=== PATIENT | female | born 1930 | race Hispanic/Latino ===

== ENCOUNTER 2017-07-19 11:04 | Emergency (ER) | payer MEDICARE, MEDICAID ==
[2017-07-19 11:36] VITALS: TEMP 98.4
[2017-07-19] MEDS ORDERED: Sodium Chloride 0.9% 1,000 ML IV STA (11:53)
--- NOTE | 2017-07-19 11:53 | ED PDOC ---
Arrival/HPI - General Chief Complaint: Abdominal Pain Time Seen by Provider: 07/19/17 11:07 Historian: Patient, Family (Daughter) - History of Present Illness Narrative History of Present Illness (Text): 07/19/17 11:53 A 87 year old female, whose past medical history includes cholecysectomy, appendectomy, hypertension and arthritis, presents to the emergency department accompanied by daughter complaining of progressively worsening epigastric abdominal pain since last night after 2 hours of having dinner. Patient describes her pain as a non-radiating pressure sensation. Patient notes nausea but denies any fever, chills, vomiting, diarrhea, chest pain, shortness of breath or any other complaints. PMD: Dr. Vargas Alaniz in [place] Time/Duration: Other (last night) Quality: Pressure Context: Home Past Medical History - Provider Review Nursing Documentation Reviewed: Yes - Tetanus Immunization Tetanus Immunization: Unknown - Cardiac Hx Cardiac Disorders: Yes Hx Hypertension: Yes - Pulmonary Hx Respiratory Disorders: No - Neurological Hx Neurological Disorder: No - HEENT Hx HEENT Disorder: No - Renal Hx Renal Disorder: No - Endocrine/Metabolic Hx Endocrine Disorders: No - Hematological/Oncological Hx Blood Disorders: No - Integumentary Hx Dermatological Disorder: No - Musculoskeletal/Rheumatological Hx Musculoskeletal Disorders: Yes Hx Arthritis: Yes - Gastrointestinal Hx Gastrointestinal Disorders: Yes Hx Gastrointestinal Ulcer: Yes - Genitourinary/Gynecological Hx Genitourinary Disorders: No - Psychiatric Hx Depression: No Hx Emotional Abuse: No Hx Physical Abuse: No Hx Substance Use: No - Surgical History Hx Appendectomy: Yes Hx Cholecystectomy: Yes Other/Comment: LUNG SX - Suicidal Assessment Feels Threatened In Home Enviroment: No Family/Social History - Physician Review Nursing Documentation Reviewed: Yes Family/Social History: No Known Family HX Smoking Status: Former Smoker Hx Alcohol Use: No Hx Substance Use: No Hx Substance Use Treatment: No Allergies/Home Meds Allergies/Adverse Reactions: Allergies Sulfa (Sulfonamide Antibiotics) Allergy (Verified 07/19/17 11:26) ANAPHYLAXIS Home Medications: Home Meds Medication Instructions Recorded Confirmed Carvedilol [Coreg] 12.5 mg PO DAILY 06/13/12 07/19/17 Valsartan [Diovan] 320 mg PO DAILY 06/13/12 07/19/17 Review of Systems - Physician Review All systems were reviewed & negative as marked: Yes - Review of Systems Constitutional: absent: Fevers, Night Sweats Respiratory: absent: SOB Cardiovascular: absent: Chest Pain Gastrointestinal: Abdominal Pain (epigastric pain), Nausea. absent: Diarrhea, Vomiting Physical Exam Vital Signs Reviewed: Yes Vital Signs Temp Pulse Resp BP Pulse Ox 07/19/17 11:35 98.4 F 74 20 143/73 98 Temperature: Afebrile Blood Pressure: Normal Pulse: Regular Respiratory Rate: Normal Appearance: Positive for: Well-Appearing, Non-Toxic, Comfortable Pain Distress: None Mental Status: Positive for: Alert and Oriented X 3 - Systems Exam Head: Present: Atraumatic, Normocephalic Pupils: Present: PERRL Extroacular Muscles: Present: EOMI Conjunctiva: Present: Normal Mouth: Present: Moist Mucous Membranes Neck: Present: Normal Range of Motion Respiratory/Chest: Present: Clear to Auscultation, Good Air Exchange. No: Respiratory Distress, Accessory Muscle Use Cardiovascular: Present: Regular Rate and Rhythm, Normal S1, S2. No: Murmurs Abdomen: Present: Tenderness (Epigastric tenderness to palpation), Normal Bowel Sounds, Guarding. No: Distention, Peritoneal Signs, Rebound Back: Present: Normal Inspection Upper Extremity: Present: Normal Inspection. No: Cyanosis, Edema Lower Extremity: Present: Normal Inspection. No: Edema Neurological: Present: GCS=15, CN II-XII Intact, Speech Normal Skin: Present: Warm, Dry, Normal Color. No: Rashes Psychiatric: Present: Alert, Oriented x 3, Normal Insight, Normal Concentration Medical Decision Making ED Course and Treatment: 07/19/17 11:53 Impression: A 87 year old female with epigastric abdominal pain and nausea. Differential Diagnosis included but are not limited to: Gastritis vs. Pancreatitis Plan: -- Chest xray -- EKG -- Labs -- Maalox, , Pepcid, Lidocaine 2% viscous, Zofran and IV fluids -- Reassess and disposition Progress Notes: EKG shows NSR at 65 BPM with 1st degree AV block, LBBB, with no prior for comparison. Interpreted by me. Report Date : 07/19/2017 12:28:11 Procedure: Chest xray Dictator : Jorge Mejia MD IMPRESSION: Chronic interstitial lung disease. No significant interval change compared to the prior examination(s). 07/19/17 13:12 Rectal exam performed by me, chaperoned by kiran Daniels, which showed guaiac negative. On re-evaluation, patient reports she feels better after receiving medication. No abdominal tenderness on exam. I have discussed the results and plan with the patient and daughter, who express understanding. Patient in agreement with plan to be discharged home. Patient is stable for discharge. Patient was instructed to follow up with physician or return if symptoms worsen or new concerning symptoms arise. - Lab Interpretations Lab Results: 07/19/17 12:30 07/19/17 12:30 Lab Results 07/19/17 12:30: Sodium 134, Potassium 4.3, Chloride 99, Carbon Dioxide 26, Anion Gap 14, BUN 20, Creatinine 0.7, Est GFR ( Amer) > 60, Est GFR (Non- Af Amer) > 60, Random Glucose 104, Calcium 9.5, Total Bilirubin 0.3, AST 30, ALT 20, Alkaline Phosphatase 65, Lactate Dehydrogenase 432, Total Creatine Kinase 30 L, Troponin I < 0.01, Total Protein 7.2, Albumin 3.6, Globulin 3.6, Albumin/Globulin Ratio 1.0 L, Lipase 55 07/19/17 12:30: WBC 10.8, RBC 3.29 L, Hgb 9.1 L, Hct 28.3 L, MCV 86.0, MCH 27.7 , MCHC 32.2, RDW 18.4 H, Plt Count 485 H, MPV 9.3, Gran % 76.2 H, Lymph % (Auto ) 17.2 L, [place] % (Auto) 5.7, Eos % (Auto) 0.8 L, Baso % (Auto) 0.1, Gran # 8.22 H, Lymph # (Auto) 1.9, [place] # (Auto) 0.6, Eos # (Auto) 0.1, Baso # (Auto) 0.01 I have reviewed the lab results: Yes - RAD Interpretation Radiology Orders: 07/19/17 11:53 CHEST PORTABLE [RAD] Stat - Medication Orders Current Medication Orders: Sodium Chloride (Sodium Chloride 0.9%) 1,000 mls @ 100 mls/hr IV .Q10H STA Stop: 07/19/17 21:52 Last Admin: 07/19/17 12:36 Dose: 100 mls/hr eMAR Start Stop Document 07/19/17 12:36 SZA (Rec: 07/19/17 12:36 [facility] [id number]) Intravenous Solution Start Date 07/19/17 Start Time 12:36 Lidocaine (Lidocaine 2% Viscous) 15 ml PO Q3H PRN PRN Reason: abdominal pain Discontinued Medications Al Hydrox/Mg Hydrox/Simethicone (Maalox Plus 30 Ml) 30 ml PO STAT STA Stop: 07/19/17 11:55 Last Admin: 07/19/17 12:36 Dose: 30 ml Belladonna/Phenobarbital ( Elixir) 5 ml PO STAT STA Stop: 07/19/17 11:55 Last Admin: 07/19/17 12:52 Dose: 5 ml Famotidine (Pepcid) 20 mg IVP STAT STA Stop: 07/19/17 11:54 Last Admin: 07/19/17 12:37 Dose: 20 mg IVP Administration Document 07/19/17 12:37 Aydee (Rec: 07/19/17 12:37 [facility] [id number]) Charges for Administration # of IVP Administrations 1 Lidocaine HCl (Lidocaine 2% Viscous) 15 ml MM ONCE ONE Stop: 07/19/17 12:01 Last Admin: 07/19/17 12:36 Dose: 15 ml Ondansetron HCl (Zofran Inj) 4 mg IVP STAT STA Stop: 07/19/17 11:54 Last Admin: 07/19/17 12:36 Dose: 4 mg IVP Administration Document 07/19/17 12:36 Aydee (Rec: 07/19/17 12:36 [facility] [id number]) Charges for Administration # of IVP Administrations 1 - Scribe Statement The provider has reviewed the documentation as recorded by the Scribe Frances Nguyen Provider Scribe Attestation: All medical record entries made by the Scribe were at my direction and personally dictated by me. I have reviewed the chart and agree that the record accurately reflects my personal performance of the history, physical exam, medical decision making, and the department course for this patient. I have also personally directed, reviewed, and agree with the discharge instructions and disposition. Disposition/Present on Arrival - Present on Arrival Any Indicators Present on Arrival: No History of DVT/PE: No History of Uncontrolled Diabetes: No Urinary Catheter: No History of Decub. Ulcer: No History Surgical Site Infection Following: None - Disposition Have Diagnosis and Disposition been Completed?: Yes Diagnosis: Abdominal pain Disposition: HOME/ ROUTINE Disposition Time: 13:12 Patient Plan: Discharge Patient Problems: Current Active Problems Problem Status Onset Abdominal pain Acute Condition: IMPROVED Discharge Instructions (ExitCare): Acute Abdominal Pain (ED) Additional Instructions: Ms Devi, thank you for letting us take care of you today. Your provider was Dr. Sawyer. You were treated for Abdominal Pain, Gastritis. The emergency medical care you received today was directed at your acute symptoms. If you were prescribed any medication, please fill it and take as directed. It may take several days for your symptoms to resolve. Return to the Emergency Department if your symptoms worsen, do not improve, or if you have any other problems. Please contact your doctor or call one of the physicians/clinics you have been referred to that are listed on the Patient Visit Information form that is included in your discharge packet. Bring any paperwork you were given at discharge with you along with any medications you are taking to your follow up visit. Our treatment cannot replace ongoing medical care by a primary care provider (PCP) outside of the emergency department. Thank you for allowing the [facility] team to be part of your care today. If you had an X-Ray or CT scan: A Radiologist will review the ED reading if any change in treatment is needed we will contact you. If you had a blood, urine, or wound culture: It will take several days for the results, if any change in treatment is needed we will contact you. If you had an STI test: It will take 48 hours for the results. Please call after 1 week if you have not heard back. Prescriptions: Aluminum Hydroxide/Magnesium H [Maalox 30 ml] 30 ml PO Q8 #1 bottle Ranitidine HCl [Zantac] 150 mg PO BID PRN #30 tablet PRN Reason: Pain, Mild (1-3) Referrals: Vargas Alaniz Jr., MD [Primary Care Provider] - Follow up with primary Forms: [employer] (Togolese)
[2017-07-19] MEDS ORDERED: Lidocaine 2% Viscous 100 ml PO PRN (11:54)
[2017-07-19] MEDS ORDERED: Atrop/Hyosc/Scopal/PB Elixir (120 ml) PO STA (11:54)
[2017-07-19] MEDS ORDERED: Alum-Mag Hydrox-Simethicone Susp (30 mL) PO STA (11:54)
--- NOTE | 2017-07-19 12:29 | RAD ---
HISTORY: Abdominal pain. COMPARISON: 06/13/2012 FINDINGS: LUNGS: Chronic infiltrates, identified to similar degree prior chest x-ray from 06/13/2012. PLEURA: No significant pleural effusion identified, no pneumothorax apparent. CARDIOVASCULAR: No radiographic findings to suggest acute or significant cardiovascular disease. OSSEOUS STRUCTURES: No significant abnormalities. VISUALIZED UPPER ABDOMEN: Normal. OTHER FINDINGS: None. IMPRESSION: Chronic interstitial lung disease. No significant interval change compared to the prior examination(s).
[2017-07-19 12:42] LABS: BASO # 0.01 K/mm3 (0.0-2.0); BASO % 0.1 % (0.0-3.0); EOS # 0.1 (0.0-0.7); EOS % 0.8 % (1.5-5.0); GRAN # 8.22 (1.4-6.5); GRAN % 76.2 % (50.0-68.0); HEMOGLOBIN 9.1 g/dL (12.0-16.0); LYMPH # 1.9 (1.2-3.4); LYMPH % 17.2 % (22.0-35.0); MEAN CORPUSCULAR HEMOGLOBIN 27.7 pg (25.0-35.0); MEAN CORPUSCULAR HGB CONC 32.2 g/dl (31.0-37.0); MEAN PLATELET VOLUME 9.3 fl (7.0-11.0); MONO # 0.6 (0.1-0.6); MONO % 5.7 % (1.0-6.0); RBC 3.29 10^6/uL (3.5-6.1); RED CELL DISTRIBUTION WIDTH 18.4 % (11.5-14.5); WHITE BLOOD COUNT 10.8 10^3/ul (4.5-11.0)
[2017-07-19 12:52] LABS: ALBUMIN 3.6 g/dL (3.0-4.8); ALT/SGPT 20 U/L (7-56); AST/SGOT 30 U/L (14-36); BLOOD UREA NITROGEN 20 mg/dL (7-21); CALCIUM 9.5 mg/dL (8.4-10.5); GFR AFRICAN-AMERICAN > 60; GFR NON-AFRICAN AMERICAN > 60; LIPASE 55 U/L (23-300)
[2017-07-19 13:03] LABS: TROPONIN I < 0.01 ng/mL
--- NOTE | 2017-07-19 15:30 | CARD ---
APPROVED REPORT EKG Measurement Heart [id number] <Conclusion> Sinus rhythm with 1st degree AV block LBBB
[2017-07-19 18:29] VITALS: BP 139/76; PULSE 80; RESP 16; O2SAT 99
== END 2017-07-19 14:00 | disposition home or self-care (01) ==
LOC: ED 11:04
DX: R10.9 Unspecified abdominal pain (principal); I10 Essential (primary) hypertension; Z90.49 Acquired absence of other specified parts of digestive tract; Z87.891 Personal history of nicotine dependence
CPT/HCPCS: 71045; 80053; 82550; 83615; 83690; 84484; 85025; 93005; 96374; 96375; 99284; J2405; J7040

== ENCOUNTER 2017-08-03 04:51 | Inpatient (IN) | payer MEDICAID, MEDICARE ==
[2017-08-03 05:09] VITALS: BMI 21.9
--- NOTE | 2017-08-03 05:15 | ED PDOC ---
Arrival/HPI - General Chief Complaint: Abdominal Pain Time Seen by Provider: 08/03/17 05:09 Historian: Patient - History of Present Illness Narrative History of Present Illness (Text): 08/03/17 05:15 Judi is an 87 year old female, whose past medical history includes cholecystectomy, appendectomy, hypertension, and arthritis, who presents to the Emergency department accompanied by family complaining of worsening abdominal pain. Relative states patient was seen in the Emergency department 2 days prior to abdominal pain, had a CT Abdomen and Pelvis with IV contrast performed which showed constipation/diverticulosis without CT findings of diverticulitis, and was discharged home. [facility] has been experiencing worsening lower abdominal pain since then with associated constipation. Patient denies any fever, chills, chest pain, shortness of breath, nausea, vomiting, diarrhea, urinary symptoms, back pain, neck pain, headache, or any other complaints. Symptom Onset: Gradual Symptom Course: Worsening Activities at Onset: Light Context: Home Past Medical History - Provider Review Nursing Documentation Reviewed: Yes - Tetanus Immunization Tetanus Immunization: Unknown - Cardiac Hx Cardiac Disorders: Yes Hx Hypertension: Yes - Pulmonary Hx Respiratory Disorders: No - Neurological Hx Neurological Disorder: No - HEENT Hx HEENT Disorder: No - Renal Hx Renal Disorder: No - Endocrine/Metabolic Hx Endocrine Disorders: No - Hematological/Oncological Hx Blood Disorders: No - Integumentary Hx Dermatological Disorder: No - Musculoskeletal/Rheumatological Hx Musculoskeletal Disorders: Yes Hx Arthritis: Yes - Gastrointestinal Hx Gastrointestinal Disorders: Yes Hx Gastrointestinal Ulcer: Yes - Genitourinary/Gynecological Hx Genitourinary Disorders: No - Psychiatric Hx Depression: No Hx Emotional Abuse: No Hx Physical Abuse: No Hx Substance Use: No - Surgical History Hx Appendectomy: Yes Hx Cholecystectomy: Yes Other/Comment: LUNG SX - Suicidal Assessment Feels Threatened In Home Enviroment: No Family/Social History - Physician Review Nursing Documentation Reviewed: Yes Family/Social History: Unknown Family HX Smoking Status: Former Smoker Hx Alcohol Use: No Hx Substance Use: No Hx Substance Use Treatment: No Allergies/Home Meds Allergies/Adverse Reactions: Allergies Sulfa (Sulfonamide Antibiotics) Allergy (Verified 08/03/17 05:08) ANAPHYLAXIS sulfamethoxazole [From Bactrim] Allergy (Verified 08/03/17 05:08) RASH trimethoprim [From Bactrim] Allergy (Verified 08/03/17 05:08) RASH Home Medications: Home Meds Medication Instructions Recorded Confirmed Carvedilol [Coreg] 12.5 mg PO DAILY 06/13/12 08/03/17 Valsartan [Diovan] 320 mg PO DAILY 06/13/12 08/03/17 Review of Systems - Physician Review All systems were reviewed & negative as marked: Yes - Review of Systems Constitutional: Normal. absent: Fevers Eyes: Normal ENT: Normal Respiratory: Normal. absent: SOB, Cough Cardiovascular: Normal. absent: Chest Pain Gastrointestinal: Abdominal Pain, Constipation. absent: Diarrhea, Nausea, Vomiting Genitourinary Female: Normal. absent: Dysuria, Frequency, Hematuria, Urine Output Changes Musculoskeletal: Normal. absent: Back Pain, Neck Pain Skin: Normal. absent: Rash Neurological: Normal. absent: Headache, Dizziness Endocrine: Normal Hemo/Lymphatic: Normal Psychiatric: Normal Physical Exam Vital Signs Reviewed: Yes Vital Signs Temp Pulse Pulse Resp BP Pulse Ox 08/03/17 09:40 61 17 108/55 L 98 08/03/17 07:53 66 66 18 08/03/17 07:06 74 20 161/84 H 98 08/03/17 05:08 98.2 F 77 18 156/88 H 98 Temperature: Afebrile Blood Pressure: Normal Pulse: Regular Respiratory Rate: Normal Appearance: Positive for: Well-Appearing, Non-Toxic, Comfortable Pain Distress: None Mental Status: Positive for: Alert and Oriented X 3 - Systems Exam Head: Present: Atraumatic, Normocephalic Pupils: Present: PERRL Extroacular Muscles: Present: EOMI Conjunctiva: Present: Normal Mouth: Present: Moist Mucous Membranes Neck: Present: Normal Range of Motion Respiratory/Chest: Present: Clear to Auscultation, Good Air Exchange. No: Respiratory Distress, Accessory Muscle Use Cardiovascular: Present: Regular Rate and Rhythm, Normal S1, S2. No: Murmurs Abdomen: Present: Tenderness (Lower abdominal tenderness), Normal Bowel Sounds. No: Distention, Peritoneal Signs Back: Present: Normal Inspection Upper Extremity: Present: Normal Inspection. No: Cyanosis, Edema Lower Extremity: Present: Normal Inspection. No: Edema Neurological: Present: GCS=15, CN II-XII Intact, Speech Normal Skin: Present: Warm, Dry, Normal Color. No: Rashes Psychiatric: Present: Alert, Oriented x 3, Normal Insight, Normal Concentration Medical Decision Making ED Course and Treatment: 08/03/17 05:15 Impression: 87 year old female complaining of lower abdominal pain and constipation. Plan: -- CT Abdomem and Pelvis w/o contrast -- EKG -- Labs, cardiac enzymes, amylase, lipase -- Urinalysis -- IV fluids -- Dilaudid -- Zofran -- Reassess and disposition Prior Visits: Notes and results from previous visits were reviewed. On 08/01/2017, pt was seen in the Emergency department for abdominal pain and constipation. CT Abdomen and Pelvis shows: constipation, diverticulosis without CT fdnigns of diverticulitis, case d/w dr barbosa accepts case will go to m/s Progress Notes: 08/03/17 23:46 - Lab Interpretations Lab Results: 08/03/17 05:26 08/03/17 05:26 Lab Results 08/03/17 05:26: Sodium 135, Potassium 3.3 L, Chloride 98, Carbon Dioxide 25, Anion Gap 16, BUN 19, Creatinine 0.8, Est GFR ( Amer) > 60, Est GFR (Non- Af Amer) > 60, Random Glucose 111 H, Calcium 9.0, Total Bilirubin 0.3, AST 26, ALT 21, Alkaline Phosphatase 71, Lactate Dehydrogenase 448, Total Creatine Kinase 45, Troponin I < 0.01, Total Protein 6.9, Albumin 3.5, Globulin 3.4, Albumin/Globulin Ratio 1.1, Amylase 65, Lipase 56 08/03/17 05:26: PT 11.0, INR 0.96, APTT 28.2 08/03/17 05:26: WBC 5.4 D, RBC 3.40 L, Hgb 9.7 L, Hct 29.5 L, MCV 86.8, MCH 28.5, MCHC 32.9, RDW 18.5 H, Plt Count 289, MPV 9.6, Gran % 75.1 H, Lymph % ( Auto) 17.3 L, [place] % (Auto) 6.1 H, Eos % (Auto) 1.5, Baso % (Auto) 0.0, Gran # 4.08, Lymph # (Auto) 0.9 L, [place] # (Auto) 0.3, Eos # (Auto) 0.1, Baso # (Auto) 0.00 - RAD Interpretation Radiology Orders: 08/03/17 05:21 ABD & PELVIS W/O PO OR IV CONT [CT] Stat - EKG Interpretation EKG Interpretation (Text): 08/03/17 06:51 lbbb sinus rate 85 - Medication Orders Current Medication Orders: Docusate Sodium (Colace) 100 mg PO TID [facility] Last Admin: 08/03/17 17:00 Dose: 100 mg Last Bowel Movement Document 08/03/17 17:00 ANISH (Rec: 08/03/17 17:00 ANISH [id number]) Last Bowel Movement Last Bowel Movement 08/03/17 Sodium Chloride (Sodium Chloride 0.9%) 1,000 mls @ 80 mls/hr IV .[id number] [facility] Stop: 08/05/17 00:14 Fluconazole 100 mg/ (Miscellaneous) 50 mls @ 100 mls/hr IVPB DAILY [facility] PRN Reason: Protocol Last Admin: 08/03/17 11:22 Dose: 100 mls/hr eMAR Start Stop Document 08/03/17 11:22 ANISH (Rec: 08/03/17 11:23 ANISH [id number]) Intravenous Solution Start Date 08/03/17 Start Time 11:22 Iron Sucrose 200 mg/ Sodium (Chloride) 110 mls @ 110 mls/hr IVPB DAILY [facility] Stop: 08/07/17 10:59 Last Admin: 08/03/17 13:46 Dose: 110 mls/hr eMAR Start Stop Document 08/03/17 13:46 ANISH (Rec: 08/03/17 13:47 ANISH [id number]) Intravenous Solution Start Date 08/03/17 Start Time 13:47 Cefepime HCl (Maxipime 1gm) 1 gm in 100 mls @ 100 mls/hr IVPB DAILY [facility] PRN Reason: Protocol Ondansetron HCl (Zofran Inj) 4 mg IVP Q6H PRN PRN Reason: Nausea/Vomiting Pantoprazole Sodium (Protonix Ec Tab) 20 mg PO 0600,1600 [facility] Last Admin: 08/03/17 17:00 Dose: 20 mg Polyethylene Glycol (Miralax) 17 gm PO BID [facility] Last Admin: 08/03/17 16:59 Dose: 17 gm Potassium Chloride (K-Dur 20 Meq Er Tab) 20 meq PO BID [facility] Discontinued Medications Hydromorphone HCl (Dilaudid) 1 mg IVP STAT STA Stop: 08/03/17 05:22 Last Admin: 08/03/17 05:45 Dose: 1 mg MAR Pain Assessment Document 08/03/17 05:45 SS (Rec: 08/03/17 05:46 SS [id number]) Pain Reassessment Is this a pain reassessment? No Sleep Is patient sleeping during reassessment? No Presence of Pain Presence of Pain Yes Location Left, Right or Bilateral Bilateral Upper or Lower Lower Pain Location Body Site Abdomen Description Description Constant Intensity of Pain at present 9 Pain Behavior Moaning Crying Guarding Irritability Grasping Site Rubbing Site Restlessness Facial Grimacing IVP Administration Document 08/03/17 05:45 SS (Rec: 08/03/17 05:46 SS [id number]) Charges for Administration # of IVP Administrations 1 Sodium Chloride (Sodium Chloride 0.9%) 1,000 mls @ 80 mls/hr IV .[id number] Last Admin: 08/03/17 05:46 Dose: 80 mls/hr eMAR Start Stop Document 08/03/17 05:46 SS (Rec: 08/03/17 05:46 [id number]) Intravenous Solution Start Date 08/03/17 Start Time 05:46 Cefepime HCl (Maxipime 1gm) 1 gm in 100 mls @ 100 mls/hr IVPB Q12 [facility] PRN Reason: Protocol Last Admin: 08/03/17 11:24 Dose: 100 mls/hr eMAR Start Stop Document 08/03/17 11:24 ANISH (Rec: 08/03/17 11:24 ANISH [id number]) Intravenous Solution Start Date 08/03/17 Start Time 11:24 Potassium Chloride (Potassium Chloride 20 Meq/100 Ml) 20 meq in 100 mls @ 50 mls/hr IVPB Q2H [facility] Stop: 08/03/17 14:59 Last Admin: 08/03/17 16:29 Dose: Magnesium Citrate (Citrate Of Mag) 300 ml PO ONCE ONE Stop: 08/03/17 09:30 Last Admin: 08/03/17 10:44 Dose: 300 ml Ondansetron HCl (Zofran Inj) 4 mg IVP STAT STA Stop: 08/03/17 05:22 Last Admin: 08/03/17 05:46 Dose: 4 mg IVP Administration Document 08/03/17 05:46 SS (Rec: 08/03/17 05:46 [id number]) Charges for Administration # of IVP Administrations 1 Potassium Chloride (K-Dur 20 Meq Er Tab) 40 meq PO STAT STA Stop: 08/03/17 06:08 Last Admin: 08/03/17 06:37 Dose: 40 meq Potassium Chloride (K-Dur 20 Meq Er Tab) 20 meq PO ONCE ONE Stop: 08/03/17 16:28 Last Admin: 08/03/17 17:00 Dose: 20 meq Sodium Phosphate (Fleet Enema) 135 ml RC STAT STA Stop: 08/03/17 08:15 - Scribe Statement The provider has reviewed the documentation as recorded by the Scribleonor Harrison All medical record entries made by the Scribe were at my direction and personally dictated by me. I have reviewed the chart and agree that the record accurately reflects my personal performance of the history, physical exam, medical decision making, and the department course for this patient. I have also personally directed, reviewed, and agree with the discharge instructions and disposition. Disposition/Present on Arrival - Present on Arrival Any Indicators Present on Arrival: No History of DVT/PE: No History of Uncontrolled Diabetes: No Urinary Catheter: No History of Decub. Ulcer: No History Surgical Site Infection Following: None - Disposition Have Diagnosis and Disposition been Completed?: Yes Diagnosis: Abdominal pain Disposition: HOSPITALIZED Disposition Time: 07:00 Patient Problems: Current Active Problems Problem Status Onset Abdominal pain Acute Condition: FAIR
[2017-08-03] MEDS ORDERED: HYDROmorphone 2 mg/ml ISec IVP STA (05:21)
[2017-08-03] MEDS ORDERED: Sodium Chloride 0.9% 1,000 ML IV SCH (05:30)
[2017-08-03 05:47] LABS: EOS # 0.1 (0.0-0.7); EOS % 1.5 % (1.5-5.0); GRAN # 4.08 (1.4-6.5); GRAN % 75.1 % (50.0-68.0); HEMOGLOBIN 9.7 g/dL (12.0-16.0); LYMPH # 0.9 (1.2-3.4); LYMPH % 17.3 % (22.0-35.0); MEAN CELL VOLUME 86.8 fl (80.0-105.0); MEAN CORPUSCULAR HEMOGLOBIN 28.5 pg (25.0-35.0); MEAN CORPUSCULAR HGB CONC 32.9 g/dl (31.0-37.0); MEAN PLATELET VOLUME 9.6 fl (7.0-11.0); MONO # 0.3 (0.1-0.6); MONO % 6.1 % (1.0-6.0); RBC 3.4 10^6/uL (3.5-6.1); RED CELL DISTRIBUTION WIDTH 18.5 % (11.5-14.5); WHITE BLOOD COUNT 5.4 10^3/ul (4.5-11.0)
[2017-08-03 06:00] LABS: INR 0.96 (0.93-1.08); PARTIAL THROMBOPLASTIN TIME 28.2 Seconds (25.1-36.5)
[2017-08-03 06:02] LABS: TROPONIN I < 0.01 ng/mL
[2017-08-03 06:04] LABS: ALB/GLOB RATIO 1.1 (1.1-1.8); ALBUMIN 3.5 g/dL (3.0-4.8); ALT/SGPT 21 U/L (7-56); AMYLASE 65 U/L (35-125); AST/SGOT 26 U/L (14-36); BLOOD UREA NITROGEN 19 mg/dL (7-21); GFR AFRICAN-AMERICAN > 60; GFR NON-AFRICAN AMERICAN > 60; LIPASE 56 U/L (23-300)
[2017-08-03] MEDS ORDERED: Potassium Chloride 20 mEq ER Tab PO STA (06:07)
--- NOTE | 2017-08-03 07:31 | ED PDOC ---
Physical Exam Vital Signs Temp Pulse Pulse Resp BP Pulse Ox 08/03/17 07:53 66 66 18 08/03/17 07:06 74 20 161/84 H 98 08/03/17 05:08 98.2 F 77 18 156/88 H 98 Medical Decision Making ED Course and Treatment: 08/03/17 07:00 Case signed out to me by Dr. Zarate. Patient is an 87 year old female, whose past medical history includes cholecystectomy, appendectomy, hypertension, and arthritis, who presents to the Emergency department accompanied by family complaining of worsening abdominal pain. Patient was evaluated 2 days ago in the hospital and had a CT abdomen and pelvis exam. Currently pending CT abdominal scan due to air fluid in the large bowel. 08/03/17 09:05 ABD PELVIS W/O PO OR IV CONT Exam Date: 08/03/17 IMPRESSION: 1. Chronic interstitial changes are seen in both lung bases. There is mild superimposed patchy infiltrate/atelectasis in both lower lobes. 2. Fecal impaction is seen in the rectosigmoid.Moderate diverticulosis is present in the sigmoid and descending colon. There is no evidence of diverticulitis. There is no evidence for intestinal obstruction. There is no evidence of free air or non-anatomic air collections. There is no evidence of free intraperitoneal or pelvic fluid. No evidence of acute abnormality in the abdomen. Dictated By: Paco Rodriguez MD, MD Dictated Date/Time: 08/03/17 0746 Signed By: Paco Rodriguez MD On reevaluation, patient has abdomen soft, NT, ND, BSx4. CT shows infiltrates vs atelectasis. Patient does not have a cough, URI or fever symptoms. WBC is normal. This is mostly likely atelectasis. Case was discussed with Dr. Miranda , Resident working with Dr. Argueta who will review CT findings and Case with him. - Lab Interpretations Lab Results: 08/03/17 05:26 08/03/17 05:26 Lab Results 08/03/17 05:26: Sodium 135, Potassium 3.3 L, Chloride 98, Carbon Dioxide 25, Anion Gap 16, BUN 19, Creatinine 0.8, Est GFR ( Amer) > 60, Est GFR (Non- Af Amer) > 60, Random Glucose 111 H, Calcium 9.0, Total Bilirubin 0.3, AST 26, ALT 21, Alkaline Phosphatase 71, Lactate Dehydrogenase 448, Total Creatine Kinase 45, Troponin I < 0.01, Total Protein 6.9, Albumin 3.5, Globulin 3.4, Albumin/Globulin Ratio 1.1, Amylase 65, Lipase 56 08/03/17 05:26: PT 11.0, INR 0.96, APTT 28.2 08/03/17 05:26: WBC 5.4 D, RBC 3.40 L, Hgb 9.7 L, Hct 29.5 L, MCV 86.8, MCH 28.5, MCHC 32.9, RDW 18.5 H, Plt Count 289, MPV 9.6, Gran % 75.1 H, Lymph % ( Auto) 17.3 L, [place] % (Auto) 6.1 H, Eos % (Auto) 1.5, Baso % (Auto) 0.0, Gran # 4.08, Lymph # (Auto) 0.9 L, [place] # (Auto) 0.3, Eos # (Auto) 0.1, Baso # (Auto) 0.00 - RAD Interpretation Radiology Orders: 08/03/17 05:21 ABD & PELVIS W/O PO OR IV CONT [CT] Stat - Medication Orders Current Medication Orders: Docusate Sodium (Colace) 100 mg PO TID [facility] Sodium Chloride (Sodium Chloride 0.9%) 1,000 mls @ 80 mls/hr IV .[id number] Last Admin: 08/03/17 05:46 Dose: 80 mls/hr eMAR Start Stop Document 08/03/17 05:46 SS (Rec: 08/03/17 05:46 SS [id number]) Intravenous Solution Start Date 08/03/17 Start Time 05:46 Pantoprazole Sodium (Protonix Ec Tab) 20 mg PO 0600,1600 [facility] Polyethylene Glycol (Miralax) 17 gm PO BID XOCHILT Discontinued Medications Hydromorphone HCl (Dilaudid) 1 mg IVP STAT STA Stop: 08/03/17 05:22 Last Admin: 08/03/17 05:45 Dose: 1 mg MAR Pain Assessment Document 08/03/17 05:45 SS (Rec: 08/03/17 05:46 SS [id number]) Pain Reassessment Is this a pain reassessment? No Sleep Is patient sleeping during reassessment? No Presence of Pain Presence of Pain Yes Location Left, Right or Bilateral Bilateral Upper or Lower Lower Pain Location Body Site Abdomen Description Description Constant Intensity of Pain at present 9 Pain Behavior Moaning Crying Guarding Irritability Grasping Site Rubbing Site Restlessness Facial Grimacing IVP Administration Document 08/03/17 05:45 SS (Rec: 08/03/17 05:46 SS [id number]) Charges for Administration # of IVP Administrations 1 Ondansetron HCl (Zofran Inj) 4 mg IVP STAT STA Stop: 08/03/17 05:22 Last Admin: 08/03/17 05:46 Dose: 4 mg IVP Administration Document 08/03/17 05:46 SS (Rec: 08/03/17 05:46 SS [id number]) Charges for Administration # of IVP Administrations 1 Potassium Chloride (K-Dur 20 Meq Er Tab) 40 meq PO STAT STA Stop: 08/03/17 06:08 Last Admin: 08/03/17 06:37 Dose: 40 meq Sodium Phosphate (Fleet Enema) 135 ml RC STAT STA Stop: 08/03/17 08:15 - Scribe Statement The provider has reviewed the documentation as recorded by the Scribe Robyn Fraser Provider Scribe Attestation: All medical record entries made by the Scribe were at my direction and personally dictated by me. I have reviewed the chart and agree that the record accurately reflects my personal performance of the history, physical exam, medical decision making, and the department course for this patient. I have also personally directed, reviewed, and agree with the discharge instructions and disposition. Disposition/Present on Arrival - Present on Arrival Any Indicators Present on Arrival: No History of DVT/PE: No History of Uncontrolled Diabetes: No Urinary Catheter: No History of Decub. Ulcer: No History Surgical Site Infection Following: None - Disposition Have Diagnosis and Disposition been Completed?: Yes Diagnosis: Abdominal pain Disposition: HOSPITALIZED Disposition Time: 07:00 Patient Plan: Admission Condition: FAIR
--- NOTE | 2017-08-03 07:46 | CT ---
EXAM: CT Abdomen and Pelvis Without Intravenous Contrast CLINICAL HISTORY: 87 years old, female; Pain; Abdominal pain; Generalized; Additional info: Abd pain TECHNIQUE: Axial computed tomography images of the abdomen and pelvis without intravenous contrast. All CT scans at this facility use one or more dose reduction techniques, viz.: automated exposure control; ma/kV adjustment per patient size (including targeted exams where dose is matched to indication; i.e. head); or iterative reconstruction technique. Coronal and sagittal reformatted images were created and reviewed. COMPARISON: No relevant prior studies available. FINDINGS: Limitations: Limitation: Lack of IV contrast reduces sensitivity of CT for detecting abnormalities in all organs. Lower thorax: Chronic interstitial changes are seen in both lung bases. There is mild superimposed patchy infiltrate/atelectasis in both lower lobes. The heart demonstrates mild diffuse enlargement. A small hiatal hernia is present. ABDOMEN: Liver: Unremarkable. Gallbladder and bile ducts: The gallbladder is not visualized. No ductal dilation. Pancreas: There is diffuse atrophy of the pancreatic parenchyma. No ductal dilation. Spleen: Unremarkable. No splenomegaly. Adrenals: Unremarkable. No mass. Kidneys and ureters: Multiple simple and complex cortical cysts are noted in both kidneys. No calculus or hydronephrosis. Stomach and bowel: Fecal impaction is seen in the rectosigmoid.Moderate diverticulosis is present in the sigmoid and descending colon. There is no evidence of diverticulitis. There is no evidence for intestinal obstruction. There is no evidence of free air or non-anatomic air collections. There is no evidence of free intraperitoneal or pelvic fluid. No evidence of acute abnormality in the abdomen. Appendix: No findings to suggest acute appendicitis. PELVIS: Bladder: Contrast material is seen in the urinary bladder. No stones. Reproductive: Unremarkable as visualized. ABDOMEN and PELVIS: Intraperitoneal space: See above. Bones/joints: There is a mild scoliosis. There is moderate diffuse osteopenia. The spine demonstrates mild degenerative changes at multiple levels. No acute fracture. No dislocation. Soft tissues: Unremarkable. Vasculature: The aorta demonstrates severe atherosclerotic calcification and ectasia. No abdominal aortic aneurysm. Lymph nodes: Unremarkable. No enlarged lymph nodes. IMPRESSION: 1. Chronic interstitial changes are seen in both lung bases. There is mild superimposed patchy infiltrate/atelectasis in both lower lobes. 2. Fecal impaction is seen in the rectosigmoid.Moderate diverticulosis is present in the sigmoid and descending colon. There is no evidence of diverticulitis. There is no evidence for intestinal obstruction. There is no evidence of free air or non-anatomic air collections. There is no evidence of free intraperitoneal or pelvic fluid. No evidence of acute abnormality in the abdomen.
[2017-08-03 08:10] LABS: PH,URINE 6.5 (4.7-8.0); URINE BILIRUBIN NEGATIVE (NEGATIVE); URINE BLOOD NEGATIVE (NEGATIVE); URINE GLUCOSE (UA) NEGATIVE (NEGATIVE); URINE LEUKOCYTE ESTERASE NEGATIVE Leu/uL (NEGATIVE); URINE NITRATE NEGATIVE (NEGATIVE); URINE PROTEIN TRACE mg/dL (<30 mg/dL); URINE UROBILINOGEN 0.2 E.U./dL (<1 E.U./dL)
[2017-08-03 08:40] LABS: URINE COLOR YELLOW (YELLOW)
[2017-08-03 08:41] LABS: URINE APPEARANCE CLEAR (CLEAR)
[2017-08-03 08:43] LABS: URINE AMORPHOUS SEDIMENT FEW; URINE BACTERIA LARGE (NEG); URINE RBC 0 - 2 /hpf (0-2)
[2017-08-03] MEDS ORDERED: Influenza Vaccine 60 mcg/0.5 mL SYR (4YR UP) IM ONE (09:28)
[2017-08-03] MEDS ORDERED: Magnesium Citrate Oral SOL (300 ml) PO ONE (09:29)
[2017-08-03 09:30] LABS: IRON 29 ug/dL (45-180)
[2017-08-03 09:39] LABS: % IRON SATURATION 9 % (20-55); TOTAL IRON BINDING CAPACITY 318 ug/dL (265-497)
--- NOTE | 2017-08-03 09:57 | CARD ---
APPROVED REPORT EKG Measurement Heart [id number] <Conclusion> Sinus rhythm with 1st degree AV block Left bundle branch block Abnormal ECG
--- NOTE | 2017-08-03 10:13 | CP.PCM.HP ---
History of Present Illness - History of Present Illness History of Present Illness: PGY1 Medicine H&P for Dr. Argueta CC: Abdominal pain 87 F with past medical history that includes HTN, Gastritis, Diverticulosis, Arthritis, HLD, Emphysema who presents [place] [facility] with complaint of abdominal pain. Patient's daughter was bedside and provided the history. Patient has had abdominal pain for 3 days. She was seen in ED 2 days for [address] CT Abd/ Pelvis showed constipation and diverticulosis. She had 2 episodes of non-bloody , bilous emesis and 1 episode of non-bloody diarrhea. Patient rates pain as moderate. She describes pain as constant and aching in lower abdomen. Patient last had BM 2 days ago before episode of diarrhea. She states that she usually has small BM daily. Denies any exacerbating or alleviating factors. Admits to 2 sick contacts at home. Denies fever/chills, chest pain, shortness of breath, urinary symptoms, back pain, neck pain, headache, incontinence. PMH: HTN, Gastritis, Diverticulosis, Arthritis, HLD, Emphysema, Hernandez's cyst Meds: As per EMR Allergy: sulfa drugs PSH: cholecystectomy, appendectomy, hernia, shoulder surgery Social: former smoker - 25 yr pack history, denies EtOH/illicit drug use Present on Admission - Present on Admission Any Indicators Present on Admission: No History of DVT/PE: No History of Uncontrolled Diabetes: No Urinary Catheter: No Decubitus Ulcer Present: No Review of Systems - Review of Systems All systems: reviewed and no additional remarkable complaints except (as per HPI ) Past Patient History - Tetanus Immunizations Tetanus Immunization: Unknown - Past Social History Smoking Status: Former Smoker - CARDIAC Hx Cardiac Disorders: Yes Hx Hypercholesterolemia: Yes Hx Hypertension: Yes - PULMONARY Hx Respiratory Disorders: No - NEUROLOGICAL Hx Neurological Disorder: No - HEENT Hx HEENT Problems: No - RENAL Hx Chronic Kidney Disease: No - ENDOCRINE/METABOLIC Hx Endocrine Disorders: No - HEMATOLOGICAL/ONCOLOGICAL Hx Blood Disorders: No - INTEGUMENTARY Hx Dermatological Problems: No - MUSCULOSKELETAL/RHEUMATOLOGICAL Hx Falls: Yes Hx Fractures: Yes (Left Shoulder) Hx Unsteady Gait: Yes - GASTROINTESTINAL Hx Colostomy: Yes Hx Gastroesophageal Reflux: Yes - GENITOURINARY/GYNECOLOGICAL Hx Genitourinary Disorders: No - PSYCHIATRIC Hx Anxiety: Yes Hx Depression: Yes Hx Substance Use: No - SURGICAL HISTORY Hx Surgeries: Yes (Left Shoulder) Meds Allergies/Adverse Reactions: Allergies Allergy/AdvReac Type Severity Reaction Status Date / Time Sulfa (Sulfonamide Allergy ANAPHYLAXIS Verified 08/03/17 05:08 Antibiotics) sulfamethoxazole Allergy RASH Verified 08/03/17 05:08 [From Bactrim] trimethoprim [From Bactrim] Allergy RASH Verified 08/03/17 05:08 Physical Exam - Constitutional Appears: No Acute Distress, Younger Than Stated Age - Head Exam Head Exam: ATRAUMATIC, NORMOCEPHALIC - Eye Exam Eye Exam: EOMI, Normal appearance Pupil Exam: PERRL - ENT Exam ENT Exam: Mucous Membranes Moist - Neck Exam Neck exam: Negative for: Tenderness - Respiratory Exam Respiratory Exam: Clear to Auscultation Bilateral, NORMAL BREATHING PATTERN. absent: Accessory Muscle Use, Respiratory Distress - Cardiovascular Exam Cardiovascular Exam: REGULAR RHYTHM, +S1, +S2 - GI/Abdominal Exam GI & Abdominal Exam: Normal Bowel Sounds, Soft, Tenderness (lower abdomen). absent: Distended, Firm, Guarding, Rebound, Rigid - Extremities Exam Extremities exam: Positive for: normal capillary refill, pedal pulses present. Negative for: calf tenderness - Back Exam Back exam: absent: CVA tenderness (L), CVA tenderness (R) - Neurological Exam Neurological exam: Alert, CN II-XII Intact, Oriented x3 - Psychiatric Exam Psychiatric exam: Normal Affect, Normal Mood - Skin Skin Exam: Dry, Intact, Normal Color, Warm Results - Vital Signs Recent Vital Signs: Last Vital Signs Temp 98.2 F 08/03/17 05:08 Pulse 61 08/03/17 09:40 Resp 17 08/03/17 09:40 BP 108/55 L 08/03/17 09:40 Pulse Ox 98 08/03/17 09:40 - Labs Result Diagrams: 08/03/17 05:26 08/03/17 05:26 Labs: Laboratory Results - last 24 hr 08/03/17 08/03/17 08/03/17 07:20 08:00 08:30 Retic Count 1.26 Iron 29 L TIBC 318 % Saturation 9 L Urine Color Yellow Urine Appearance Clear Urine pH 6.5 Ur Specific [place] 1.020 Urine Protein Trace H Urine Glucose (UA) Negative Urine Ketones Negative Urine Blood Negative Urine Nitrate Negative Urine Bilirubin Negative Urine Urobilinogen 0.2 Ur Leukocyte Esterase Negative Urine RBC 0 - 2 Urine WBC 1 - 3 Ur Epithelial Cells 4 - 5 Amorphous Sediment Few Urine Bacteria Large Urine Other Uyeast Assessment & Plan - Assessment and Plan (Free Text) Assessment: 87 F with abdominal pain likely secondary to constipation/fecal impaction Plan: Constipation/Fecal impaction Fleet enema Mag citrate Miralax NS 80cc/hr Colace GI consult, Dr. Corrigan, help appreciated Nausea/vomiting Zofran Prophylaxis Protonix Discussed with Dr. Kendall Sidhu PGY1 - Date & Time Date: 08/03/17 Time: 09:30
[2017-08-03] MEDS: POLYETHYLENE GLYCOL 3350 17 GM/Dose PACKET PO SCH ×2 (10:43→16:59)
[2017-08-03] MEDS ORDERED: Cefepime 1gm in NS 100ml 1 GM/100 ML BAG IVPB SCH (10:45)
[2017-08-03] MEDS ORDERED: Fluconazole IV 200mg/100 ml NS 100 ML IVPB ONE (11:07)
[2017-08-03] MEDS: Fluconazole IV 200mg/100 ml NS 100 MG in Premixed IV 1 EA IVPB SCH (11:22)
--- NOTE | 2017-08-03 15:46 | CON ---
DATE: 08/03/2017 GASTROENTEROLOGY CONSULTATION REQUESTING PHYSICIAN: Alexandre Argueta MD. REASON FOR CONSULT: I have been asked to see this 87-year-old female, comes to the hospital with 3-4 days of diffuse abdominal pain. The patient states that on the day prior to admission, she had 2 episodes of vomiting as well as several episodes of watery loose bowel movements. There is no rectal bleeding or hematemesis. The patient was seen in the emergency room 2 weeks ago for midabdominal pain associated with nausea. She was sent home on antacids and told to return if the abdominal pain came back. CT scan of the abdomen and pelvis performed in the emergency room shows a fecal impaction involving the rectum and sigmoid colon. There were also fluid-filled dilated loops of colon in the ascending and transverse colon. There is also stool-filled colon in the descending colon. The patient currently denies any nausea or vomiting. PAST MEDICAL HISTORY: Notable for arthritis, COPD, hypertension, diverticulosis. PAST SURGICAL HISTORY: Notable for cholecystectomy, appendectomy, shoulder surgery. SOCIAL HISTORY: She is a former cigarette smoker, having smoked up to one pack of cigarettes for 25 years. She denies any alcohol use. FAMILY HISTORY: Noncontributory. MEDICATIONS AT HOME: Include valsartan, ranitidine 120 mg twice a day, carvedilol 12.5 mg daily and Maalox 30 mL every 8 hours. REVIEW OF SYSTEMS: Fourteen-point review of systems is notable for abdominal pain, vomiting and diarrhea. PHYSICAL EXAMINATION: VITAL SIGNS: Reveal temperature of 98.2, blood pressure 108/55, heart rate 61. HEENT: Reveals sclerae to be white. Conjunctivae pink. NECK: Supple. CHEST: Reveals lungs to be clear. HEART: Reveals regular rate and rhythm. ABDOMEN: Soft, mild distention, nontender. No mass. EXTREMITIES: Show no edema. LABORATORY DATA: Reveals white blood cell count 5.4, hemoglobin 9.7, platelet count 289,000. Chemistries reveal potassium of 3.3. AST, ALT, alk phos were all normal. Total iron is 29, total iron binding capacity 318, percent saturation is 9. IMPRESSION: An 87-year-old female with recurrent abdominal pain for the last 2 weeks, worse over the last 2 days. Associated with nausea, vomiting and diarrhea. CT of the abdomen shows fecal impaction with proximal fluid-feces filled descending colon, ascending colon and transverse colon. Her diarrhea is secondary to the fecal impaction. RECOMMENDATIONS: 1. Agree with Fleets Enema to disimpact the rectum. 2. We will order citrate of magnesia 10 ounces now. 3. Continue MiraLax 17 g two to three times a day. 4. The patient may require a followup x-ray in the morning. Lalit Corrigan MD
[2017-08-03] MEDS ORDERED: Potassium Chloride 20 mEq ER Tab PO ONE (16:27)
[2017-08-03 16:31] LABS: FERRITIN 25.6 ng/mL
[2017-08-03] MEDS: Pantoprazole 20 mg EC Tab PO SCH (17:00)
[2017-08-03 17:01] LABS: FOLATE 8.2 ng/mL
--- NOTE | 2017-08-03 19:33 | HP ---
DATE OF EXAM: 08/03/2017 HISTORY OF PRESENT ILLNESS: The patient is an 87-year-old female. According to the ER physician, the patient has been here multiple times in the ER but the patient has multiple different medical record numbers and all the visits have not been compiled together. The patient came to the emergency room in automatic silk screen printer hours around 05:00 a.m. complaining of right and left lower quadrant abdominal pain which started last night and also stated constipation. The patient came to the ER as an ambulatory walk-in. According to the ER physician's evaluation, the patient came to the emergency room with family accompanying complaining of worsening abdominal pain. The patient apparently was seen in the ER 2 days prior to the abdominal pain and had a CAT scan of the abdomen and pelvis done, showed constipation and diverticulosis, and the patient was discharged home. As mentioned, the patient has multiple medical record numbers and all the records are not compiled. The patient's daughter and the patient stated that worsening abdominal pain. CODE STATUS: Full code. LIVING WILL ADVANCE DIRECTIVE: None. HEIGHT: 5 feet 2 inches. WEIGHT: 120. BMI: 22. ALLERGIES: SULFA AND BACTRIM. HOME MEDICATIONS: 1. Diovan 320 mg daily. 2. Zantac 150 b.i.d. p.r.n. 3. Coreg 12.5 daily. 4. Maalox p.r.n. MENSTRUAL HISTORY: Postmenopausal. OCCUPATIONAL HISTORY: Disabled. SOCIAL HISTORY: Former smoker. Denies alcohol. Denies substance use. Denies drug use. FAMILY HISTORY: Not available. PAST MEDICAL AND SURGICAL HISTORY: History of cholecystectomy, history of hypertension, history of gastroesophageal reflux, appendectomy, degenerative joint disease, history of constipation, history of hyperlipidemia, history of arthritis, history of left shoulder fracture, history of gait dysfunction, history of questionable anxiety and depression, history of left shoulder surgery. The above medical information is from the [facility]. 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 PHYSICAL EXAMINATION: GENERAL: The patient was seen in the emergency room lying on stretcher #1. The patient is at present comfortable. VITAL SIGNS: T-max 98.2, heart rate 61, 74, blood pressure initially 156/88, 161/84, 108/55, respiration 17 to 18, O2 saturation 98%. HEENT: Head, normocephalic, atraumatic. ENT examination shows pinkish pale conjunctivae and dry oral mucosa. NECK: No neck rigidity. Soft carotid bruit. CHEST: Kyphosis. LUNGS: Show no rales, crackles, or wheezing. CARDIOVASCULAR: S1 and S2, regular rhythm, questionable soft systolic murmur left sternal border, right second intercostal space, left second intercostal space. ABDOMEN: Soft. Positive healed surgical scar of cholecystectomy and appendectomy. Positive suprapubic tenderness. Positive right and left lower quadrant tenderness. Positive left periumbilical and left upper quadrant tenderness. No rebound tenderness. No guarding. No rigidity. GENITALIA: Female. MUSCULOSKELETAL: Shows a body mass index of 22. NEUROLOGIC: The patient is alert, awake, responsive. The patient is Scottish-speaking. Most of the translation and history are obtained through the patient's daughter who was at bedside. DIAGNOSTICS: WBC 5.4, hemoglobin and hematocrit 9.7 and 29.5, platelet 289, granulocytes 75%, reticulocyte count 1.26, PT/PTT 11 and 28.2, abnormal chemistry, potassium 3.3, glucose 111, iron 29, saturation 9. LFTs, troponin negative, amylase and lipase negative. Urine, pH 6.5, trace protein, large bacteria, and some yeast. The patient just completed the CAT scan of the abdomen and pelvis which will be reviewed. The patient's CAT scan results are now available, which was done without contrast, which shows bibasilar chronic interstitial changes, fecal impaction, details will follow. EKG shows left bundle-branch block. IMPRESSION: 1. Lower abdominal pain with increasing severity frequency. 2. Rectosigmoid fecal impaction, stasis, and worsening constipation. 3. Sigmoid and descending colon diverticulosis. 4. Bibasilar chronic interstitial lung disease with bibasilar questionable patchy infiltrate and atelectasis. 5. Cardiomegaly. 6. Hiatal hernia. 7. History of cholecystectomy and appendectomy. 8. Pancreatic atrophy. 9. Multiple bilateral simple and complex renal cortical cysts. 10. Scoliosis. 11. Diffuse osteopenia. 12. Degenerative joint disease of the spine. 13. Severe atherosclerotic aortic calcification and ectasia. 14. Left bundle-branch block. 15. Hypertension. 16. Trace proteinuria, pyuria, bacteriuria, and funguria. 17. Normocytic iron-deficiency anemia with granulocytosis. 18. Hypokalemia. 19. Questionable urinary tract infection with funguria. 20. History of gastroesophageal reflux. PLAN: At this time, the patient has been placed on Med-Surg observation. The patient has been ordered serial labs. Urine cultures ordered. Consultation Gastroenterology. The patient has been ordered a stat Fleet Enema and bottle of magnesium citrate by Gastroenterology. The patient is started on Colace 100 three times a day. The patient is empirically started on Diflucan 100 mg IV daily with urine cultures ordered. The patient was also given Fleet Enema. The patient is started on IV Venofer 200 mg IV daily. The patient received potassium supplementation. The patient is started on cefepime 1 g IV q. 12, MiraLax 17 g twice a day, Protonix 40 mg daily, IV fluid 0.9 normal saline at 80 mL an hour, Zofran 4 mg IV q.4 p.r.n. Out of bed. NELSON stockings, SCDs, physical therapy, occupational therapy, stool occult blood ordered. The patient will be ordered serial labs. The patient will be given another potassium supplementation. The patient's labs will be checked in the morning. The patient has been requested Gastroenterology consultation. Further recommendations are awaiting. The patient has been ordered GI, DVT prophylaxis. The patient will be ordered high-fiber heart-healthy diet. The patient will be ordered potassium riders. Repeat labs have been ordered. The patient will be ordered an echo with Doppler for evaluation of cardiomegaly and hypertensive heart disease. The patient has been ordered out of bed to chair. At present, the patient was seen and examined on stretcher #1 in the emergency room. The patient's condition, diagnosis, management, need for hospitalization, need for further diagnostic and therapeutic intervention were discussed and explained to the patient and the patient's at length, and all questions concerned answered. Alexandre Argueta MD [facility] # [id number]
[2017-08-04] MEDS: Sodium Chloride 0.9% 1,000 ML IV SCH ×4 (04:30→22:19)
[2017-08-04] MEDS: Pantoprazole 20 mg EC Tab PO SCH ×2 (05:55→16:51)
[2017-08-04 07:21] LABS: BASO # 0.01 K/mm3 (0.0-2.0); BASO % 0.2 % (0.0-3.0); EOS # 0.1 (0.0-0.7); EOS % 1.5 % (1.5-5.0); GRAN # 3.2 (1.4-6.5); GRAN % 59.3 % (50.0-68.0); LYMPH # 1.6 (1.2-3.4); LYMPH % 29.5 % (22.0-35.0); MEAN CELL VOLUME 88.5 fl (80.0-105.0); MEAN CORPUSCULAR HGB CONC 31.6 g/dl (31.0-37.0); MEAN PLATELET VOLUME 9.8 fl (7.0-11.0); MONO # 0.5 (0.1-0.6); MONO % 9.5 % (1.0-6.0); RBC 3.22 10^6/uL (3.5-6.1); RED CELL DISTRIBUTION WIDTH 18.9 % (11.5-14.5); WHITE BLOOD COUNT 5.4 10^3/ul (4.5-11.0)
[2017-08-04 07:34] LABS: ALT/SGPT 29 U/L (7-56); AST/SGOT 24 U/L (14-36); BILIRUBIN,DIRECT 0.1 mg/dL (0.0-0.4); BLOOD UREA NITROGEN 15 mg/dL (7-21); CALCIUM 8.6 mg/dL (8.4-10.5); GFR AFRICAN-AMERICAN > 60; GFR NON-AFRICAN AMERICAN > 60; MAGNESIUM 2.6 mg/dL (1.7-2.2)
--- NOTE | 2017-08-04 08:28 | CP.PCM.PN ---
Subjective - Date & Time of Evaluation Date of Evaluation: 08/04/17 Time of Evaluation: 07:30 - Subjective Subjective: (covering for Dr. Argueta) Patient is seen this morning with daughter at her side. According to the daughter, the patient had a lot of liquid stool. The patient denies abdominal pain this morning. Objective - Vital Signs/Intake and Output Vital Signs (last 24 hours): Temp Pulse Resp BP Pulse Ox 98.7 F 68 18 126/68 94 L 08/03/17 23:30 08/03/17 23:30 08/03/17 23:30 08/03/17 23:30 08/03/17 23:30 - Medications Medications: Current Medications Docusate Sodium (Colace) 100 mg PO TID [facility] Last Admin: 08/03/17 17:00 Dose: 100 mg Sodium Chloride (Sodium Chloride 0.9%) 1,000 mls @ 80 mls/hr IV .[id number] [facility] Stop: 08/05/17 00:14 Last Admin: 08/04/17 04:31 Dose: 80 mls/hr Fluconazole 100 mg/ (Miscellaneous) 50 mls @ 100 mls/hr IVPB DAILY [facility] PRN Reason: Protocol Last Admin: 08/03/17 11:22 Dose: 100 mls/hr Iron Sucrose 200 mg/ Sodium (Chloride) 110 mls @ 110 mls/hr IVPB DAILY [facility] Stop: 08/07/17 10:59 Last Admin: 08/03/17 13:46 Dose: 110 mls/hr Cefepime HCl (Maxipime 1gm) 1 gm in 100 mls @ 100 mls/hr IVPB DAILY [facility] PRN Reason: Protocol Ondansetron HCl (Zofran Inj) 4 mg IVP Q6H PRN PRN Reason: Nausea/Vomiting Pantoprazole Sodium (Protonix Ec Tab) 20 mg PO 0600,1600 [facility] Last Admin: 08/04/17 05:55 Dose: 20 mg Polyethylene Glycol (Miralax) 17 gm PO BID [facility] Last Admin: 08/03/17 16:59 Dose: 17 gm Potassium Chloride (K-Dur 20 Meq Er Tab) 20 meq PO BID [facility] - Labs Labs: 08/04/17 06:30 08/04/17 06:30 PT 11.0 SECONDS (9.4-12.5) 08/03/17 05:26 INR 0.96 (0.93-1.08) 08/03/17 05:26 APTT 28.2 Seconds (25.1-36.5) 08/03/17 05:26 - Constitutional Appears: No Acute Distress - Head Exam Head Exam: ATRAUMATIC, NORMOCEPHALIC - Respiratory Exam Respiratory Exam: Clear to Ausculation Bilateral, NORMAL BREATHING PATTERN - Cardiovascular Exam Cardiovascular Exam: +S1, +S2 - GI/Abdominal Exam GI & Abdominal Exam: Soft, Normal Bowel Sounds. absent: Tenderness - Extremities Exam Extremities Exam: Normal Inspection - Neurological Exam Neurological Exam: Alert, Awake, Oriented x3 Assessment and Plan - Assessment and Plan (Free Text) Assessment: Abdominal pain fecal impaction/constipation UTI? HTN osteoarthritis Plan: Patient seen by gastroenterology yesterday. Enemas were ordered and patient had liquid stool as per daughter. Her abdominal pain has subsided. awaiting abdominal xray. Hemoglobin is 9 this morning. continue to monitor H&H. awaiting urine culture. yeast seen on urinalysis. Patient is covered with fluconazole.
--- NOTE | 2017-08-04 08:54 | RAD ---
HISTORY: FECAL IMPACTION COMPARISON: No prior. FINDINGS: BOWEL: The bowel gas pattern is nonspecific. There is gas in the rectum. No bowel dilatation or obstruction. No free intraperitoneal air. BONES: Within normal limits for the patient's age. OTHER FINDINGS: None. IMPRESSION: Nonobstructive bowel-gas pattern. No radiographic evidence for fecal impaction.
[2017-08-04 08:58] VITALS: RESP 20
[2017-08-04] MEDS: Fluconazole IV 200mg/100 ml NS 100 MG in Premixed IV 1 EA IVPB SCH (09:54)
[2017-08-04] MEDS: POLYETHYLENE GLYCOL 3350 17 GM/Dose PACKET PO SCH ×2 (09:55→17:34)
[2017-08-04] MEDS: Potassium Chloride 20 mEq ER Tab PO SCH ×2 (09:55→17:33)
[2017-08-04] MEDS: Cefepime 1gm in NS 100ml 1 GM/100 ML BAG IVPB SCH (10:44)
--- NOTE | 2017-08-04 11:17 | PN ---
DATE: 08/04/2017 SUBJECTIVE: The patient is sitting in a chair, comfortable. She denies any further abdominal pain, nausea, vomiting. She had multiple bowel movements yesterday with citrate of magnesia and a Fleet's enema. She is tolerating solid food. PHYSICAL EXAMINATION VITAL SIGNS: Reveal temperature of 98, blood pressure 159/70, heart rate of 60. HEENT: Reveals sclerae to be white. Conjunctivae pale. NECK: Supple. CHEST: Lungs are clear. HEART: Reveals regular rate and rhythm. ABDOMEN: Soft, nontender. EXTREMITIES: Show no edema. RECTAL: Shows no fecal impaction. No mass. LABORATORY DATA: Revealed potassium of 4.4, serum iron 29, TIBC 318, iron saturation is 9%. B12 and folate levels are normal. Stool for occult blood is negative. CBC reveals hemoglobin of 9, white blood cell count 5.4, reticulocyte count is 1.26. Obstructive series of the abdomen shows no fecal impaction, no colonic obstruction. IMPRESSION: 1. Fecal impaction status post partial colon obstruction resulting in abdominal pain, nausea and vomiting. This is resolved with oral laxatives and Fleet's enema. 2. Anemia, most likely anemia of chronic disease. Retic count is normal and stool for occult blood is negative. Given advanced age and CT negative for mass in the colon as well as stool for occult blood negative, I do not recommend colonoscopy at this time. RECOMMENDATIONS: Continue MiraLax 17 g twice a day with Colace 100 mg 3 times a day. The patient is stable from GI standpoint and can be discharged home with outpatient followup. Lalit Corrigan MD
--- NOTE | 2017-08-04 16:28 | CARD ---
APPROVED REPORT EXAM: Two-dimensional and M-mode echocardiogram with Doppler and color Doppler. INDICATION 2D DIMENSIONS Left Atrium (2D)3.5 (1.6-4.0cm)IVSd1.2 (0.7-1.1cm) LVDd3.7 (3.9-5.9cm)LVOT Diameter2.1 (1.8-2.4cm) PWd1.1 (0.7-1.1cm)LVDs2.5 (2.5-4.0cm) FS (%) 32.0 %LVEF (%)61.0 (>50%) M-Mode DIMENSIONS Left Atrium (MM)4.50 (2.5-4.0cm)Aortic Root3.10 (2.2-3.7cm) Aortic Cusp Exc.1.50 (1.5-2.0cm) Aortic Valve AoV Peak Tmxllmbn068.0cm/sAoV VTI75.7cmAO Peak GR.32mmHg LVOT Peak Fgexfpaw161.0cm/sLVOT VTI32.40cmAO Mean GR.17mmHg AURELIO (VMAX)1.83ed6WIY (VTI)1.98vi7EE P 1/2 Cdyl553xe Mitral Valve MV E Eebqrjyb671.0cm/sMV E Peak Gr.165mmHgMV A Hbrsxnbp570.0cm/s E/A ratio0.8 TDI Lateral E' Peak V8.09cm/sMedial E' Peak V4.60cm/sE/Lateral E'16.6 E/Medial E'29.1 Tricuspid Valve TR Peak Yueflmhv108za/sRAP PLWGSXHF21hyPfHI Peak Gr.54mmHg [id number] LEFT VENTRICLE The left ventricle is normal size. There is mild concentric left ventricular hypertrophy. Proximal septal thickening is noted. The left ventricular function is normal.EF-55-60% There is normal LV segmental wall motion. Transmitral Doppler flow pattern is Grade III-reversible restrictive diastolic dysfunction. No left ventricle thrombus noted on this study. There is no ventricular septal defect visualized. There is no left ventricular aneurysm. There is no mass noted in the left ventricle. RIGHT VENTRICLE The right ventricle is borderline dilated. The right ventricle is mildly hypertrophied. Systolic function is mildly reduced. ATRIA The left atrium is mildly dilated. The right atrium size is normal. The interatrial septum is intact with no evidence for an atrial septal defect. AORTIC VALVE The aortic valve is calcified and displays decreased opening. There is mild aortic regurgitation. There is mild to moderate valvular aortic stenosis. There is no aortic valvular vegetation. MITRAL VALVE The mitral valve is thickened but opens well. Mitral annular calcification is moderate. Mitral regurgitation is moderate., Multiple Jets There is no mitral valve stenosis. There is no evidence of mitral valve prolapse. TRICUSPID VALVE The tricuspid valve leaflets are thickened , but open well. There is moderate tricuspid regurgitation.RVSP-64 mmof hg. There is moderate pulmonary hypertension. There is no tricuspid valve stenosis. There is no tricuspid valve prolapse or vegetation. PULMONIC VALVE The pulmonic valve is mildly thickened. There is mild to moderate pulmonic valvular regurgitation. There is no pulmonic valvular stenosis. GREAT VESSELS The aortic root is normal in size. The ascending aorta is normal in size. The pulmonary artery is normal. The IVC is normal in size and collapses >50% with inspiration. PERICARDIAL EFFUSION There is no pleural effusion. There is no pericardial effusion. <Conclusion> The left ventricle is normal size. There is mild concentric left ventricular hypertrophy. Proximal septal thickening is noted. The left ventricular function is normal.EF-55-60% There is mild aortic regurgitation. Mitral regurgitation is moderate., Multiple Jets There is moderate tricuspid regurgitation.RVSP-64 mmof hg. There is moderate pulmonary hypertension.
[2017-08-04] MEDS ORDERED: Alum-Mag Hydrox-Simethicone Susp (30 mL) PO ONE (19:38)
[2017-08-05] MEDS: Pantoprazole 20 mg EC Tab PO SCH (05:25)
[2017-08-05 07:31] VITALS: BP 148/61; PULSE 66; TEMP 98.2; O2SAT 93
[2017-08-05 08:33] LABS: BASO # 0.01 K/mm3 (0.0-2.0); BASO % 0.1 % (0.0-3.0); EOS # 0.2 (0.0-0.7); EOS % 3.2 % (1.5-5.0); GRAN # 4.31 (1.4-6.5); GRAN % 62.8 % (50.0-68.0); HEMOGLOBIN 9.7 g/dL (12.0-16.0); LYMPH # 1.5 (1.2-3.4); LYMPH % 22.4 % (22.0-35.0); MEAN CELL VOLUME 89.4 fl (80.0-105.0); MEAN CORPUSCULAR HEMOGLOBIN 27.7 pg (25.0-35.0); MEAN PLATELET VOLUME 9.6 fl (7.0-11.0); MONO # 0.8 (0.1-0.6); MONO % 11.5 % (1.0-6.0); RBC 3.5 10^6/uL (3.5-6.1); RED CELL DISTRIBUTION WIDTH 19.2 % (11.5-14.5); WHITE BLOOD COUNT 6.9 10^3/ul (4.5-11.0)
[2017-08-05 08:45] LABS: ALB/GLOB RATIO 1.1 (1.1-1.8); ALBUMIN 3.4 g/dL (3.0-4.8); ALT/SGPT 25 U/L (7-56); AST/SGOT 29 U/L (14-36); BILIRUBIN,DIRECT 0.2 mg/dL (0.0-0.4); BLOOD UREA NITROGEN 14 mg/dL (7-21); CALCIUM 9.1 mg/dL (8.4-10.5); GFR AFRICAN-AMERICAN > 60; GFR NON-AFRICAN AMERICAN > 60; MAGNESIUM 2.5 mg/dL (1.7-2.2)
--- NOTE | 2017-08-05 08:50 | CP.PCM.PN ---
Subjective - Date & Time of Evaluation Date of Evaluation: 08/05/17 Time of Evaluation: 08:00 - Subjective Subjective: (covering for Dr. Argueta) Patient is seen this morning. she is lying in bed. She denies pain. + bowel movement yesterday. Objective - Vital Signs/Intake and Output Vital Signs (last 24 hours): Temp Pulse Resp BP Pulse Ox 98.2 F 66 20 148/61 93 L 08/05/17 07:30 08/05/17 07:30 08/05/17 07:30 08/05/17 07:30 08/05/17 07:30 Intake and Output: 08/05/17 08/05/17 06:59 18:59 Intake Total 300 Balance 300 - Medications Medications: Current Medications Carvedilol (Coreg) 6.25 mg PO BID [facility] Docusate Sodium (Colace) 100 mg PO TID [facility] Last Admin: 08/04/17 17:34 Dose: 100 mg Fluconazole 100 mg/ (Miscellaneous) 50 mls @ 100 mls/hr IVPB DAILY [facility] PRN Reason: Protocol Last Admin: 08/04/17 09:54 Dose: 100 mls/hr Iron Sucrose 200 mg/ Sodium (Chloride) 110 mls @ 110 mls/hr IVPB DAILY [facility] Stop: 08/07/17 10:59 Last Admin: 08/04/17 12:07 Dose: 110 mls/hr Cefepime HCl (Maxipime 1gm) 1 gm in 100 mls @ 100 mls/hr IVPB DAILY [facility] PRN Reason: Protocol Last Admin: 08/04/17 10:44 Dose: 100 mls/hr Ondansetron HCl (Zofran Inj) 4 mg IVP Q6H PRN PRN Reason: Nausea/Vomiting Pantoprazole Sodium (Protonix Ec Tab) 20 mg PO 0600,1600 [facility] Last Admin: 08/05/17 05:25 Dose: 20 mg Polyethylene Glycol (Miralax) 17 gm PO BID [facility] Last Admin: 08/04/17 17:34 Dose: 17 gm Potassium Chloride (K-Dur 20 Meq Er Tab) 20 meq PO BID [facility] Last Admin: 08/04/17 17:33 Dose: 20 meq Valsartan (Diovan) 320 mg PO DAILY [facility] - Labs Labs: 08/05/17 08:26 08/05/17 08:26 PT 11.0 SECONDS (9.4-12.5) 08/03/17 05:26 INR 0.96 (0.93-1.08) 08/03/17 05:26 APTT 28.2 Seconds (25.1-36.5) 08/03/17 05:26 - Constitutional Appears: No Acute Distress - Head Exam Head Exam: ATRAUMATIC, NORMOCEPHALIC - Respiratory Exam Respiratory Exam: Clear to Ausculation Bilateral, NORMAL BREATHING PATTERN - Cardiovascular Exam Cardiovascular Exam: +S1, +S2 - GI/Abdominal Exam GI & Abdominal Exam: Soft, Normal Bowel Sounds. absent: Tenderness - Neurological Exam Neurological Exam: Alert, Awake, Oriented x3 Assessment and Plan - Assessment and Plan (Free Text) Assessment: Abdominal pain Constipation HTN Arthritis UTI Plan: Patient's abdominal pain has resolved and she is moving her bowels. Awaiting results of urine culture. Yeast seen on urinalysis. Patient currently on Cefepime and Fluconazole.
[2017-08-05] MEDS: POLYETHYLENE GLYCOL 3350 17 GM/Dose PACKET PO SCH (10:30)
[2017-08-05] MEDS: Potassium Chloride 20 mEq ER Tab PO SCH (10:30)
[2017-08-05] MEDS: Fluconazole IV 200mg/100 ml NS 100 MG in Premixed IV 1 EA IVPB SCH (10:31)
[2017-08-05] MEDS: Cefepime 1gm in NS 100ml 1 GM/100 ML BAG IVPB SCH (10:32)
== END 2017-08-05 16:01 | disposition home or self-care (01) | DRG 180 ==
LOC: ED 04:51 → ERH 07:00 → 5RNO 09:49 → OBSVTOIN 08-04 15:11
PROVIDERS: ADMIT Internal Medicine; ATTEND Internal Medicine
DX: K56.41 Fecal impaction (principal); J84.9 Interstitial pulmonary disease, unspecified; K86.89 Other specified diseases of pancreas; D63.8 Anemia in other chronic diseases classified elsewhere; J43.9 Emphysema, unspecified; M41.9 Scoliosis, unspecified; N28.1 Cyst of kidney, acquired; E87.6 Hypokalemia; J98.11 Atelectasis; N39.0 Urinary tract infection, site not specified; K57.30 Diverticulosis of large intestine without perforation or abscess without bleeding; I11.9 Hypertensive heart disease without heart failure; D50.9 Iron deficiency anemia, unspecified; E78.00 Pure hypercholesterolemia, unspecified; E78.5 Hyperlipidemia, unspecified; I44.7 Left bundle-branch block, unspecified; I70.0 Atherosclerosis of aorta; K21.9 Gastro-esophageal reflux disease without esophagitis; K44.9 Diaphragmatic hernia without obstruction or gangrene; M47.9 Spondylosis, unspecified; M85.80 Other specified disorders of bone density and structure, unspecified site; Z79.899 Other long term (current) drug therapy; Z87.01 Personal history of pneumonia (recurrent); Z87.11 Personal history of peptic ulcer disease; Z87.891 Personal history of nicotine dependence; Z90.49 Acquired absence of other specified parts of digestive tract; Z93.3 Colostomy status; Z88.2 Allergy status to sulfonamides; Z88.8 Allergy status to other drugs, medicaments and biological substances; R40.2412 Glasgow coma scale score 13-15, at arrival to emergency department; Z68.22 Body mass index [BMI] 22.0-22.9, adult

== ENCOUNTER 2017-09-26 02:18 | Observation (INO) | payer MEDICARE, MEDICAID ==
[2017-09-26 02:35] VITALS: BMI 22.6
--- NOTE | 2017-09-26 03:02 | ED PDOC ---
Arrival/HPI - General Chief Complaint: Chest Pain Time Seen by Provider: 09/26/17 02:27 Historian: Patient - History of Present Illness Narrative History of Present Illness (Text): 09/26/17 03:01 An 87 year old female, whose past medical history includes hypertension, presents to the emergency department complaining of intermittent left sided chest pain that started today.Some slight SOB at times.. Patient's daughter denies any history of cardiac disease. Patient denies any history of any known fever or chills. Patient denies any back pain, leg pain or any other complaints at this time. PMD: Dr. Argueta Symptom Onset: Sudden Symptom Course: Unchanged Activities at Onset: Rest Context: Home Past Medical History - Provider Review Nursing Documentation Reviewed: Yes - Tetanus Immunization Tetanus Immunization: Unknown - Reproductive Menopause: Yes - Cardiac Hx Cardiac Disorders: Yes Hx Hypertension: Yes - Pulmonary Hx Respiratory Disorders: No - Neurological Hx Neurological Disorder: No - HEENT Hx HEENT Disorder: No - Renal Hx Renal Disorder: No - Endocrine/Metabolic Hx Endocrine Disorders: No - Hematological/Oncological Hx Blood Disorders: No - Integumentary Hx Dermatological Disorder: No - Musculoskeletal/Rheumatological Hx Arthritis: Yes Hx Rheumatoid Arthritis: Yes - Gastrointestinal Hx Gastrointestinal Disorders: Yes Hx Gastroesophageal Reflux: Yes Hx Gastrointestinal Ulcer: Yes - Genitourinary/Gynecological Hx Genitourinary Disorders: No - Psychiatric Hx Psychophysiologic Disorder: No Hx Depression: No Hx Emotional Abuse: No Hx Physical Abuse: No Hx Substance Use: No - Surgical History Hx Appendectomy: Yes Hx Cholecystectomy: Yes Hx Orthopedic Surgery: Yes (rt shoulder) Other/Comment: LUNG SX - Suicidal Assessment Feels Threatened In Home Enviroment: No Family/Social History - Physician Review Nursing Documentation Reviewed: Yes Family/Social History: No Known Family HX Smoking Status: Former Smoker Hx Alcohol Use: No Hx Substance Use: No Hx Substance Use Treatment: No Allergies/Home Meds Allergies/Adverse Reactions: Allergies Sulfa (Sulfonamide Antibiotics) Allergy (Verified 09/26/17 02:34) ANAPHYLAXIS sulfamethoxazole [From Bactrim] Allergy (Verified 09/26/17 02:34) RASH trimethoprim [From Bactrim] Allergy (Verified 09/26/17 02:34) RASH Home Medications: Home Meds Medication Instructions Recorded Confirmed Valsartan [Diovan] 320 mg PO DAILY 06/13/12 09/26/17 Alprazolam [Xanax] 0.5 mg PO PRN PRN 09/26/17 09/26/17 Folic Acid 1 mg PO DAILY 09/26/17 09/26/17 Hydrochlorothiazide [Microzide] 12.5 mg PO DAILY 09/26/17 09/26/17 Methotrexate 2.5 mg PO QWK 09/26/17 09/26/17 Metoprolol Succinate [Toprol Xl] 25 mg PO DAILY 09/26/17 09/26/17 Nabumetone [Relafen] 750 mg PO DAILY 09/26/17 09/26/17 Omeprazole 40 mg PO DAILY 09/26/17 09/26/17 Rosuvastatin Calcium [Crestor] 10 mg PO DAILY 09/26/17 09/26/17 Venlafaxine [Effexor-XR] 75 mg PO DAILY 09/26/17 09/26/17 predniSONE [predniSONE Tab] 5 mg PO DAILY 09/26/17 09/26/17 Review of Systems - Physician Review All systems were reviewed & negative as marked: Yes - Review of Systems Constitutional: absent: Fevers, Other (chills) Respiratory: absent: SOB Cardiovascular: Chest Pain (left sided) Musculoskeletal: absent: Back Pain, Other (leg pain) Physical Exam Vital Signs Reviewed: Yes Vital Signs Temp Pulse Resp BP Pulse Ox 09/26/17 05:41 155/80 H 09/26/17 04:00 68 18 147/83 94 L 09/26/17 03:07 66 18 174/84 H 95 09/26/17 02:43 98.1 F 70 18 184/108 H 96 Temperature: Afebrile Blood Pressure: Hypertensive Pulse: Regular Respiratory Rate: Normal Appearance: Positive for: Well-Appearing, Non-Toxic, Comfortable Pain Distress: None Mental Status: Positive for: Alert and Oriented X 3 - Systems Exam Head: Present: Atraumatic, Normocephalic Pupils: Present: PERRL Extroacular Muscles: Present: EOMI Conjunctiva: Present: Normal Mouth: Present: Moist Mucous Membranes Neck: Present: Normal Range of Motion Respiratory/Chest: Present: Rales (at bases). No: Respiratory Distress, Accessory Muscle Use Cardiovascular: Present: Regular Rate and Rhythm, Normal S1, S2. No: Murmurs Abdomen: No: Tenderness, Distention, Peritoneal Signs Back: Present: Normal Inspection Upper Extremity: Present: Normal Inspection. No: Cyanosis, Edema Lower Extremity: Present: Normal Inspection. No: Edema Neurological: Present: GCS=15, CN II-XII Intact, Speech Normal Skin: Present: Warm, Dry, Normal Color. No: Rashes Psychiatric: Present: Alert, Oriented x 3, Normal Insight, Normal Concentration Medical Decision Making ED Course and Treatment: 09/26/17 02:59 Impression: An 87 year old female with left sided chest pain. Plan: -- EKG -- Chest X-ray -- labs -- Reassess and disposition Progress Notes: EKG: Ordered, reviewed, and independently interpreted the EKG. Rate : 67 BPM Rhythm : NSR Interpretation : 1st degree AV block, left bundle branch block 09/26/17 05:30 Chest X-ray- increased pulmonary vascular marking, as read by me. 09/26/17 05:[address] Argueta, who agrees and accepts patient to be admitted, Dr. Truong on consult and for medical laboratory assistant to evaluate patient. - Lab Interpretations Lab Results: 09/26/17 03:05 09/26/17 03:05 Lab Results 09/26/17 03:50: Free T4 0.90, Thyroxine (T4) 6.5, TSH 3rd Generation 10.40 H 09/26/17 03:05: WBC 10.3 D, RBC 3.59, Hgb 10.5 L, Hct 31.6 L, MCV 88.0, MCH 29.2, MCHC 33.2, RDW 18.2 H, Plt Count 432, MPV 9.3 09/26/17 03:05: PT 11.5, INR 1.01, APTT 29.0 09/26/17 03:05: Sodium 138, Potassium 3.5 L, Chloride 100, Carbon Dioxide 26, Anion Gap 16, BUN 31 H, Creatinine 0.8, Est GFR ( Amer) > 60, Est GFR ( Non-Af Amer) > 60, Random Glucose 99, Calcium 9.2, Total Bilirubin 0.2, AST 27, ALT 22, Alkaline Phosphatase 68, Lactate Dehydrogenase 477, Total Creatine Kinase 59, Troponin I < 0.01, NT-Pro-B Natriuret Pep 464 H, Total Protein 7.4, Albumin 3.9, Globulin 3.6, Albumin/Globulin Ratio 1.1 I have reviewed the lab results: Yes - RAD Interpretation Radiology Orders: 09/26/17 02:49 CHEST PORTABLE [RAD] Stat - EKG Interpretation Interpreted by ED Physician: Yes Type: 12 lead EKG - Medication Orders Current Medication Orders: Discontinued Medications Acetaminophen (Tylenol 325mg Tab) 650 mg PO Q6H PRN PRN Reason: Pain, moderate (4-7) Last Admin: 09/26/17 11:41 Dose: 650 mg MAR Pain/Vitals Document 09/26/17 11:41 VM (Rec: 09/26/17 11:42 [id number] Pain Reassessment Is This A Pain ReAssessment? Yes Location Pain Location Body Professional Healthcare Representative Re-Assess: MAR Pain/Vitals Document 09/26/17 12:41 VM (Rec: 09/26/17 13:22 [id number] Pain Reassessment Is This A Pain ReAssessment? Yes Presence of Pain Presence of Pain No Alprazolam (Xanax) 0.5 mg PO PRN PRN; Protocol PRN Reason: Anxiety Alprazolam (Xanax) 0.5 mg PO DAILY PRN; Protocol PRN Reason: Anxiety Aspirin (Aspirin) 325 mg PO STAT [facility] Stop: 09/26/17 07:08 Last Admin: 09/26/17 07:18 Dose: 325 mg Aspirin (Ecotrin) 81 mg PO DAILY [facility] Last Admin: 09/26/17 10:42 Dose: 81 mg Atorvastatin Calcium (Lipitor) 20 mg PO STAT [facility] Stop: 09/26/17 06:52 Last Admin: 09/26/17 07:18 Dose: 20 mg Atorvastatin Calcium (Lipitor) 40 mg PO DAILY [facility] Last Admin: 09/26/17 11:00 Dose: Not Given Non-Admin Reason: Patient Refused Enoxaparin Sodium (Lovenox) 40 mg SC DAILY [facility] PRN Reason: Protocol Last Admin: 09/26/17 11:00 Dose: Not Given Non-Admin Reason: Patient Refused Folic Acid (Folic Acid) 1 mg PO DAILY [facility] Last Admin: 09/26/17 11:00 Dose: Not Given Non-Admin Reason: Patient Refused Furosemide (Lasix) 20 mg IVP ONCE ONE Stop: 09/26/17 05:26 Last Admin: 09/26/17 05:41 Dose: 20 mg MAR Blood Pressure Document 09/26/17 05:41 SS (Rec: 09/26/17 05:41 SS [id number]) Blood Pressure Blood Pressure (100/60-150/90) 155/80 IVP Administration Document 09/26/17 05:41 SS (Rec: 09/26/17 05:41 SS [id number]) Charges for Administration # of IVP Administrations 1 Methotrexate (Methotrexate) 2.5 mg PO QWK [facility] Last Admin: 09/26/17 11:01 Dose: Not Given Non-Admin Reason: Patient Refused Nitroglycerin (Nitro-Bid 2% Oint) 1 ea TOP STAT STA Stop: 09/26/17 06:43 Last Admin: 09/26/17 07:18 Dose: 1 ea Nitroglycerin (Nitro-Bid 2% Oint) 1 ea TOP Q6H [facility] Nabumetone [Relafen] (750 Mg (Home Med)) 750 mg PO DAILY [facility] Last Admin: 09/26/17 10:34 Dose: Pantoprazole Sodium (Protonix Ec Tab) 40 mg PO 0600 [facility] Last Admin: 09/26/17 07:18 Dose: 40 mg Pneumococcal Polyvalent Vaccine (Pneumovax 23 Vaccine) 0.5 ml IM .ONCE ONE Stop: 09/26/17 12:38 Last Admin: 09/26/17 13:03 Dose: 0.5 ml [facility] Immunization Data Document 09/26/17 13:03 (Rec: 09/26/17 13:03 [id number]) Immunization Data Vaccine Information Sheet Given Yes Vaccine Information Sheet Given Date 09/26/17 Immunization Registry Document 09/26/17 13:03 (Rec: 09/26/17 13:03 [id number]) Immunization Registry Consent Date 07/19/17 Polyethylene Glycol (Miralax) 17 gm PO BID [facility] Last Admin: 09/26/17 11:01 Dose: Not Given Non-Admin Reason: Patient Refused Potassium Chloride (K-Dur 20 Meq Er Tab) 20 meq PO STAT [facility] Stop: 09/26/17 05:25 Last Admin: 09/26/17 05:40 Dose: 20 meq Potassium Chloride (Potassium Chloride Oral Soln) 40 meq PO STAT [facility] Stop: 09/26/17 07:40 Last Admin: 09/26/17 07:58 Dose: 40 meq Prednisone (Prednisone Tab) 5 mg PO DAILY [facility] Last Admin: 09/26/17 11:02 Dose: Not Given Non-Admin Reason: Patient Refused Valsartan (Diovan) 320 mg PO DAILY [facility] Last Admin: 09/26/17 10:58 Dose: Not Given Non-Admin Reason: Patient Refused Venlafaxine HCl (Effexor Xr) 75 mg PO DAILY [facility] Last Admin: 09/26/17 11:00 Dose: Not Given Non-Admin Reason: Patient Refused - Scribe Statement The provider has reviewed the documentation as recorded by the Jerardo Morales Provider Scribe Attestation: All medical record entries made by the Jerardo were at my direction and personally dictated by me. I have reviewed the chart and agree that the record accurately reflects my personal performance of the history, physical exam, medical decision making, and the department course for this patient. I have also personally directed, reviewed, and agree with the discharge instructions and disposition. Disposition/Present on Arrival - Present on Arrival Any Indicators Present on Arrival: No History of DVT/PE: No History of Uncontrolled Diabetes: No Urinary Catheter: No History of Decub. Ulcer: No History Surgical Site Infection Following: None - Disposition Have Diagnosis and Disposition been Completed?: Yes Diagnosis: Chest pain Disposition: HOSPITALIZED Disposition Time: 05:41 Patient Plan: Observation Condition: STABLE
[2017-09-26 03:30] LABS: ALB/GLOB RATIO 1.1 (1.1-1.8); ALBUMIN 3.9 g/dL (3.0-4.8); ALT/SGPT 22 U/L (7-56); AST/SGOT 27 U/L (14-36); BLOOD UREA NITROGEN 31 mg/dL (7-21); CALCIUM 9.2 mg/dL (8.4-10.5); GFR AFRICAN-AMERICAN > 60; GFR NON-AFRICAN AMERICAN > 60
[2017-09-26 03:41] LABS: B-TYPE NATRIURETIC PEPTIDE 464 pg/mL (0-450); TROPONIN I < 0.01 ng/mL
[2017-09-26 03:46] LABS: HEMOGLOBIN 10.5 g/dL (12.0-16.0); MEAN CORPUSCULAR HEMOGLOBIN 29.2 pg (25.0-35.0); MEAN CORPUSCULAR HGB CONC 33.2 g/dl (31.0-37.0); MEAN PLATELET VOLUME 9.3 fl (7.0-11.0); RBC 3.59 10^6/uL (3.5-6.1); RED CELL DISTRIBUTION WIDTH 18.2 % (11.5-14.5); WHITE BLOOD COUNT 10.3 10^3/ul (4.5-11.0)
[2017-09-26 03:47] LABS: INR 1.01 (0.93-1.08); PROTHROMBIN TIME 11.5 SECONDS (9.4-12.5)
[2017-09-26 04:01] VITALS: PULSE 68; O2SAT 94
[2017-09-26] MEDS ORDERED: Potassium Chloride 20 mEq ER Tab PO STA (05:24)
--- NOTE | 2017-09-26 06:35 | CP.PCM.HP ---
History of Present Illness - History of Present Illness History of Present Illness: This patient is an 87 year old female with PMHx of HTN, HLD, Acid Reflux, and Rheumotoid Arthritis who presents complaining of chest pain that started yesterday afternoon. Patient states the pain is only during inspiration. Patient denies any long periods of immobility or radiation of the pain. She is unable to describe the quality of the pain but states it it non-radiating. Patient has no other complaints. She denies any fever, chills, headache, SOB, nausea, vomiting, diarrhea, constipation, abdominal pain, or any urinary symptoms. ROS: As stated above PMHx: HTN, HLD, Acid Reflux disease, Rheumatoid Arthritis PSHx: Appendectomy, Cholecystectomy, Right Shoulder surgery, Uterine Prolapse Surgery? Allergies: Bactrim SocialHx: Quit smoking 35 years ago, Unspecified PPD. Denies alcohol or illicit drug use. Lives at home with daughter. Needs helps with some ADL's FamHx: Non-Cont. Meds: Reviewed PMD: Dr. Vargas Alaniz. Present on Admission - Present on Admission Any Indicators Present on Admission: No Review of Systems - Review of Systems All systems: reviewed and no additional remarkable complaints except (As per HPI ) Review of Systems: As per HPI Past Patient History - Tetanus Immunizations Tetanus Immunization: Unknown - Past Social History Smoking Status: Former Smoker - CARDIAC Hx Cardiac Disorders: Yes Hx Hypertension: Yes - PULMONARY Hx Respiratory Disorders: No - NEUROLOGICAL Hx Neurological Disorder: No - HEENT Hx HEENT Problems: No - RENAL Hx Chronic Kidney Disease: No - ENDOCRINE/METABOLIC Hx Endocrine Disorders: No - HEMATOLOGICAL/ONCOLOGICAL Hx Blood Disorders: No - INTEGUMENTARY Hx Dermatological Problems: No - MUSCULOSKELETAL/RHEUMATOLOGICAL Hx Arthritis: Yes Hx Rheumatoid Arthritis: Yes - GASTROINTESTINAL Hx Gastrointestinal Disorders: Yes Hx Gastroesophageal Reflux: Yes - GENITOURINARY/GYNECOLOGICAL Hx Genitourinary Disorders: No - PSYCHIATRIC Hx Psychophysiologic Disorder: No Hx Depression: No Hx Emotional Abuse: No Hx Physical Abuse: No Hx Substance Use: No - SURGICAL HISTORY Hx Appendectomy: Yes Hx Cholecystectomy: Yes Hx Orthopedic Surgery: Yes (rt shoulder) Other/Comment: LUNG SX Meds Allergies/Adverse Reactions: Allergies Allergy/AdvReac Type Severity Reaction Status Date / Time Sulfa (Sulfonamide Allergy ANAPHYLAXIS Verified 09/26/17 02:34 Antibiotics) sulfamethoxazole Allergy RASH Verified 09/26/17 02:34 [From Bactrim] trimethoprim [From Bactrim] Allergy RASH Verified 09/26/17 02:34 Physical Exam - Constitutional Appears: Well, Non-toxic, No Acute Distress - Head Exam Head Exam: ATRAUMATIC, NORMAL INSPECTION, NORMOCEPHALIC - Eye Exam Eye Exam: Normal appearance - ENT Exam ENT Exam: Mucous Membranes Moist - Respiratory Exam Respiratory Exam: Clear to Auscultation Bilateral, NORMAL BREATHING PATTERN - Cardiovascular Exam Cardiovascular Exam: RRR, +S1, +S2. absent: JVD - GI/Abdominal Exam GI & Abdominal Exam: Normal Bowel Sounds, Soft, Tenderness (Mild Epigastric ). absent: Distended, Firm, Rebound - Extremities Exam Extremities exam: Positive for: normal capillary refill, normal inspection, pedal pulses present. Negative for: pedal edema - Neurological Exam Neurological exam: Alert, Oriented x3 - Psychiatric Exam Psychiatric exam: Normal Affect, Normal Mood - Skin Skin Exam: Dry, Intact, Normal Color, Warm Results - Vital Signs Recent Vital Signs: Last Vital Signs Temp 98.1 F 09/26/17 02:43 Pulse 68 09/26/17 04:00 Resp 18 09/26/17 04:00 BP 155/80 H 09/26/17 05:41 Pulse Ox 94 L 09/26/17 04:00 - Labs Result Diagrams: 09/26/17 03:05 09/26/17 03:05 Assessment & Plan - Assessment and Plan (Free Text) Assessment: 87 year old female with PMHx of HTN, HLD, Acid Reflux, and Rheumotoid Arthritis admitted for chest pain r/o ACS. Plan: Chest Pain, R/O ACS BNP elevated at 464 1st Troponin: NEGATIVE EKst Degree AV block, Left Bundle Branch Block, PVC's NSR @ 67 CXR: increased interstitial pattern. PENDING Official Read ECHO Cardiology Consult EKG Trop NitroPaste ASA Protonix Lipitor Stat Lipid Panel Hx of HTN Hold Beta Lukasz due to 1st degree Block Home Valsartan Hx of HLD No Crestor in formulary Start Lipitor. Gave Stat Dose in AM Hx of RA Prednisone NO Nabumetone in Formulary Start Motrin Proph Lovenox Protonix Patient discussed with Attending Chance Brown, PGY-1
[2017-09-26] MEDS ORDERED: Nitroglycerin 2% Ointment Foilpak UD TOP STA (06:42)
[2017-09-26] MEDS ORDERED: Pantoprazole 40 mg EC Tab PO SCH (07:00)
[2017-09-26 07:39] LABS: TROPONIN I 0.02 ng/mL
[2017-09-26] MEDS ORDERED: Potassium Chloride 40 mEq/30 ml LIQ UD PO STA (07:39)
[2017-09-26] MEDS ORDERED: Nitroglycerin 2% Ointment Foilpak UD TOP SCH (07:45)
--- NOTE | 2017-09-26 07:51 | RAD ---
HISTORY: chest pain COMPARISON: 07/19/2017 and 06/13/2012 FINDINGS: LUNGS: Chronic interstitial infiltrates are seen which are not significantly changed compared to the study of 2012 PLEURA: No significant pleural effusion identified, no pneumothorax apparent. CARDIOVASCULAR: Normal. OSSEOUS STRUCTURES: No significant abnormalities. VISUALIZED UPPER ABDOMEN: Normal. OTHER FINDINGS: None. IMPRESSION: Chronic interstitial infiltrates
[2017-09-26] MEDS ORDERED: Enoxaparin 40 mg Syringe SC SCH (10:00)
[2017-09-26] MEDS ORDERED: NABUMETONE 750 MG PO SCH (10:00)
[2017-09-26] MEDS: Venlafaxine 75 mg ER Cap PO SCH ×2 (10:42→11:00)
[2017-09-26] MEDS: POLYETHYLENE GLYCOL 3350 17 GM/Dose PACKET PO SCH ×2 (10:42→11:01)
--- NOTE | 2017-09-26 10:51 | CARD ---
APPROVED REPORT EKG Measurement Heart [id number] [id number] <Conclusion> Sinus rhythm with 1st degree AV block with premature supraventricular complexes Left bundle branch block Abnormal ECG
[2017-09-26 11:31] LABS: FREE T4 0.9 ng/dL (0.78-2.19); T4 6.5 ug/dL (5.5-11.0)
[2017-09-26 12:28] VITALS: BP 120/68; RESP 20; TEMP 98.2
[2017-09-26] MEDS ORDERED: Pneumococcal 23-Valent Vaccine IM ONE (12:37)
--- NOTE | 2017-09-26 20:13 | CON ---
DATE: 09/26/2017 CARDIOLOGY CONSULTATION HISTORY: The patient is an 87-year-old woman who presents with pins and needles underneath for left breast. These symptoms are increased with inspiration. The patient has no previous cardiac history. She does suffer from hypertension, gastroesophageal reflux disease, hyperlipidemia. She has a documented old left bundle branch block on her EKG. SOCIAL HISTORY: The patient does not smoke. REVIEW OF SYSTEMS: A 14-point review of systems is reviewed in detail. No cardiac symptomatology is noted. She is complaining of headache which is from the nitroglycerin patch that was given to her. PHYSICAL EXAMINATION: VITAL SIGNS: Blood pressure is 155/80, heart rate in the 60s. NECK: Negative JVD. LUNGS: Without rales. HEART: S1, S2 with a 2/6 systolic ejection murmur. EXTREMITIES: Without edema. EKG shows normal sinus rhythm with a left bundle-branch block. Troponin's are negative x2. Previous echocardiogram revealed aortic valve sclerosis with mild stenosis with good LV function. There is [id number] pulmonary hypertension noted. Hemoglobin is 10.5. IMPRESSION: 1. Atypical chest pain. 2. No evidence for acute coronary syndrome. 3. Hypertension. 4. Hypercholesterolemia. 5. Anemia. 6. Aortic valve sclerosis with mild aortic valve stenosis. Given these findings, the patient can be discharged from a cardiac perspective. There is no evidence for acute coronary syndrome. Because of her cardiac risk factors, we will bring the patient back for an elective stress test. I have discussed this with the patient and family in detail. Rakesh Truong MD
--- NOTE | 2017-09-27 08:31 | HP ---
HISTORY OF PRESENT ILLNESS: The patient is an 87-year-old female came to the emergency room with complaints of chest pain with deep inspiration. The patient was seen in the emergency room. The patient was examined. The patient's diagnostic data reviewed. Please refer to the detailed history, physical examination by the medical record coder for further details. IMPRESSION: 1. Chest pain, probably musculoskeletal versus questionable angina. 2. Left bundle-branch block with premature ventricular contractions. 3. Normocytic anemia. 4. Hypokalemia. 5. Prerenal kidney injury. 6. Hyperlipidemia. 7. Chronic interstitial pulmonary disease, unchanged since 2013. 8. History of hypertension, rheumatoid arthritis, history of depression, history of hyperlipidemia, history of anxiety disorder. 9. History of gastroesophageal reflux, history of appendectomy, cholecystectomy, right shoulder surgery, history of uterine prolapse surgery. 10. Hiatal hernia. 11. Pancreatic atrophy. 12. Simple and complex cortical renal cysts. 13. Fecal impaction with fecal stasis and constipation. 14. Diffuse osteopenia. 15. History of degenerative joint disease of the spine. 16. Concentric left ventricular hypertrophy. 17. Grade 3 reversible restrictive diastolic dysfunction. 18. Left ventricular ejection fraction of 61%. 19. Right ventricular hypertrophy. 20. Moderate valvular aortic stenosis. 21. Moderate mitral regurgitation. 22. Moderate mitral annular calcification. 23. Moderate tricuspid regurgitation. 24. Moderate pulmonary arterial hypertension with elevated right ventricular systolic pressure of 64 mmHg. 25. Deconditioning. 26. History of partial colon obstruction. 27. Anemia of chronic disease. 28. 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 29. Hypercholesteremia with elevated LDL. PLAN: At this time, the patient is admitted to telemetry from the emergency room for chest pain. The patient has been ordered cardiology consultation, aspirin 81 mg p.o. daily. The patient's Diovan is resumed at 320 mg p.o. daily, Ecotrin 81 mg daily, Effexor 75 mg daily, folic acid 1 mg daily. The patient was given potassium supplementation and Lasix 20 IV. The patient was given Lipitor 40 daily, Lovenox 40 subcu daily, methotrexate 2.5 weekly, MiraLax 17 g twice a day, Relafen 750 daily, nitro paste 1 inch every 6 hours. The patient is on Protonix 40 daily, Xanax 0.5 mg daily p.r.n. for her anxiety. Repeat EKG ordered. The patient has been ordered out of bed, occupational therapy, physical therapy. The patient was seen and examined in room 263 bed one with the medical record coder. The patient recently had an echocardiogram done on August 2017 which was reviewed. The patient is awaiting cardiology evaluation. If the patient is cleared by Cardiology, the patient may be considered for discharge today with followup with the primary care physician. Dictated and electronically signed, not read. Alexandre Argueta MD
--- NOTE | 2017-09-27 10:40 | CARD ---
APPROVED REPORT EKG Measurement Heart [id number] SD [id number] <Conclusion> Normal sinus rhythm Left bundle branch block Abnormal ECG
== END 2017-09-26 13:36 | disposition home or self-care (01) ==
LOC: ED 02:18 → ERH 05:34 → 2RNO 08:51
PROVIDERS: ADMIT Internal Medicine; ATTEND Internal Medicine
DX: R07.89 Other chest pain (principal); M06.9 Rheumatoid arthritis, unspecified; K21.9 Gastro-esophageal reflux disease without esophagitis; I10 Essential (primary) hypertension; E78.5 Hyperlipidemia, unspecified; I44.0 Atrioventricular block, first degree; I44.7 Left bundle-branch block, unspecified; I49.3 Ventricular premature depolarization; E87.6 Hypokalemia; F41.9 Anxiety disorder, unspecified; F32.9 Major depressive disorder, single episode, unspecified; K44.9 Diaphragmatic hernia without obstruction or gangrene; D63.8 Anemia in other chronic diseases classified elsewhere; E78.00 Pure hypercholesterolemia, unspecified; I27.21 Secondary pulmonary arterial hypertension; I08.3 Combined rheumatic disorders of mitral, aortic and tricuspid valves; Z88.2 Allergy status to sulfonamides; Z87.891 Personal history of nicotine dependence; Z23 Encounter for immunization
CPT/HCPCS: 71045; 80053; 80061; 82550; 83615; 83880; 84439; 84443; 84484; 85027; 85610; 85730; 90732; 93005; 96374; 99283; G0009; G0378; J1940; J3480